=== PATIENT | male | born 1955 | race Caucasian/White ===

== ENCOUNTER 2019-06-15 06:50 | Inpatient (IN) | payer MEDICARE ==
[~2019-06-15] VITALS: Ht 172.7 cm; Wt 83.9 kg
[2019-06-15] MEDS ORDERED: Norco 5-325 Ta1 EACH PO (07:23)
[2019-06-15 09:53] LABS: BASOPHILS ABSOLUTE AUTO 0.04 K/mm3 (0.00-0.23); BASOPHILS PERCENT AUTO 0 % (0-2); EOSINOPHILS ABSOLUTE AUTO 0.03 K/mm3 (0.00-0.68); EOSINOPHILS PERCENT AUTO 0 % (0-6); Hematocrit 38.6 % (37.0-53.0); Hemoglobin 13.1 g/dL (13.5-17.5); IMMATURE GRAN ABSOLUTE AUTO 0.03 K/mm3 (0.00-0.10); IMMATURE GRAN PERCENT AUTO 0 % (0-1); LYMPHOCYTES ABSOLUTE AUTO 1.93 K/mm3 (0.84-5.20); LYMPHOCYTES PERCENT AUTO 19 % (21-46); MONOCYTES ABSOLUTE AUTO 0.94 K/mm3 (0.16-1.47); MONOCYTES PERCENT AUTO 9 % (4-13); Mean Corpuscular HGB 32.8 pg (26.0-34.0); Mean Corpuscular HGB Conc 33.9 g/dL (31.5-36.5); Mean Corpuscular Volume 97 fL (80-100); NEUTROPHILS ABSOLUTE AUTO 7.03 K/mm3 (1.96-9.15); NEUTROPHILS PERCENT AUTO 70 % (41-73); Platelet Count 284 K/mm3 (150-400); RDW Coefficient Variation 12.6 % (11.7-14.2)
[2019-06-15 10:15] LABS: Alanine Aminotransfer (ALT/SGP 34 U/L (12-78); Albumin, Blood 3.4 g/dL (3.4-5.0); Albumin/Globulin Ratio 0.9 (0.8-1.8); Alk Phos 75 U/L (50-136); Anion Gap 9 mmol/L (6-16); Aspartate Aminotrans (AST/SGOT 30 U/L (12-37); Bilirubin, Total 0.5 mg/dL (0.1-1.0); Blood Urea Nitrogen 6 mg/dL (8-24); Bun/Creatinine Ratio 20.6 (12.0-20.0); CO2, Blood 23 mmol/L (21-32); Calcium, Blood 8.3 mg/dL (8.5-10.1); Chloride, Blood 100 mmol/L (98-108); Creatinine, Blood 0.29 mg/dL (0.60-1.20); Globulin, Blood 3.6 g/dL (2.2-4.0); Glomerular Filtration Rate >60 (60-); Glucose, Blood 109 mg/dL (70-99); Potassium, Blood 4.4 mmol/L (3.5-5.5); Sodium, Blood 132 mmol/L (136-145); Troponin I <0.015 ng/mL (0.000-0.040)
[2019-06-15 10:20] LABS: Creatine Kinase MB 6.3 ng/mL (0.0-3.6); Creatine Kinase MB Index 1.5 (0.0-4.0)
--- NOTE | 2019-06-15 12:35 | NUR ---
DR SIBLEY AND JOLENE HERE TO SEE PT, S/O PRESENT, DISCUSSED PT'S STATUS/HX.
[2019-06-15 13:22] LABS: International Normalized Ratio 0.98; Prothrombin Time Results 10.5 Sec (9.7-11.5)
--- NOTE | 2019-06-15 13:46 | NUR ---
Pt gave me permission to help with his care 06/15/2019 in the emergency department.
--- NOTE | 2019-06-15 17:52 | NUR ---
DISCUSSED PAIN CONTROLL WITH DR SIBLEY, REPORTS WILL PLACE ORDERS.
--- NOTE | 2019-06-15 18:31 | NUR ---
Patient gave this RN student permission to provide care on 06/16/2019
--- NOTE | 2019-06-16 05:04 | NUR ---
SHIFT SUMMARY: SUSANNAH HAS RESTED INTERMITTENTLY DURING THE NIGHT. HE REPORTS TOLERABLE PAIN CONTROL WITH PERCOCET 5-325 MG, TWO TABLETS, AND DILAUDID 1 MG. HE WAS MADE NPO AT MIDNIGHT. THE TOES ON HIS RIGHT FOOT ARE COOL TO THE TOUCH, CAPILLARY REFILL < 3 SECONDS, STRONG PEDAL PULSE. SPLINT IN PLACE. HE IS ABLE TO MAKE HIS NEEDS KNOWN. HE HAS NOT DEMONSTRATED ANY CHANGE IN LOC, SWEATING, TREMORS, OR AGITATION THIS SHIFT. HE IS LYING IN BED WITH HIS CALL LIGHT IN REACH. HE DOES USE HIS CALL LIGHT APPROPRIATELY.
[2019-06-16 06:43] LABS: Anion Gap 5 mmol/L (6-16); Blood Urea Nitrogen 9 mg/dL (8-24); Bun/Creatinine Ratio 21.1 (12.0-20.0); CO2, Blood 28 mmol/L (21-32); Calcium, Blood 8.5 mg/dL (8.5-10.1); Chloride, Blood 100 mmol/L (98-108); Creatinine, Blood 0.43 mg/dL (0.60-1.20); Glomerular Filtration Rate >60 (60-); Glucose, Blood 134 mg/dL (70-99); Potassium, Blood 4.1 mmol/L (3.5-5.5); Sodium, Blood 133 mmol/L (136-145)
--- NOTE | 2019-06-16 10:44 | NUR ---
PAS PLACED TO E. FAMILY PRESENT.
--- NOTE | 2019-06-16 12:52 | NUR ---
PT OUT OF ROOM FOR PROCEDURE. PT VOIDED RECENTLY. PT BEEN NPO. DISCUSSED PAIN MEDS GIVEN.
--- NOTE | 2019-06-16 12:59 | NUR ---
History, Chart, Medications and Allergies reviewed before start of procedure. Patient confirms NPO status and agrees with scheduled surgery.
--- NOTE | 2019-06-16 13:00 | NUR ---
MARZENA WRAP TO RLE UPPER LEG. UNABLE TO DO CHLORHEXIDINE PREP AND CLIP PREP.
--- NOTE | 2019-06-16 14:16 | NUR ---
MARZENA WRAP REMOVED PER DR SIBLEY, WHILE DR SIBLEY STOOD AT BEDSIDE. Surgical site prepped with 2% Chlorhexidine cloth wipe. No hair noted to surgery site.
--- NOTE | 2019-06-16 16:18 | NUR ---
SHIFT SUMMARY PT BEEN NPO. PT BEEN ASSISTED WITH ADL'S PRN. PT SHOWN NO S/SX OF WITHDRAWAL. PT BEEN REPOSTIONED AT TIMES, OTHER TIMES REFUSED TO BE REPOSITIONED. PT CONT TO BE OUT OF ROOM FOR PROCEDURE. FAMILY IN/OUT OF ROOM.
--- NOTE | 2019-06-16 18:43 | NUR ---
PT BACK FROM HAVING PROCEDURE. PT LS CLEAR AFTER COUGHING. PT ON 8L O2 ON OXYIMIZER. PT REPORTS PAIN TO R HIP AREA. PT PULSE TO R FOOT WNL. PT CAP REFILL WNL. PT REQ PAIN MED. PT DENIES CP/SOB, N/V. PT WIGGLES TOES. PT HAS MARZENA WRAP TO R LEG FROM FOOT TO THIGH. PT SPEECH CLEAR. PT HAS NO TREMORS, HERNANDEZ. PT HR LOW 100'S.
--- NOTE | 2019-06-16 18:58 | NUR ---
PT OXYGEN DECREASED TO 6L O2 ON OXYMIZER. PT MED FOR PAIN. FAMILY WAS PRESENT WHEN PT TO ROOM.
--- NOTE | 2019-06-16 19:15 | NUR ---
BEDSIDE REPORT BEEN GIVEN, PT REPOSITIONED. ALARM IN PLACE.
[2019-06-17 04:51] LABS: BASOPHILS ABSOLUTE AUTO 0.03 K/mm3 (0.00-0.23); BASOPHILS PERCENT AUTO 0 % (0-2); EOSINOPHILS ABSOLUTE AUTO 0.02 K/mm3 (0.00-0.68); EOSINOPHILS PERCENT AUTO 0 % (0-6); Hematocrit 30.1 % (37.0-53.0); Hemoglobin 9.7 g/dL (13.5-17.5); IMMATURE GRAN ABSOLUTE AUTO 0.05 K/mm3 (0.00-0.10); IMMATURE GRAN PERCENT AUTO 1 % (0-1); LYMPHOCYTES ABSOLUTE AUTO 1.04 K/mm3 (0.84-5.20); LYMPHOCYTES PERCENT AUTO 11 % (21-46); MONOCYTES ABSOLUTE AUTO 1.23 K/mm3 (0.16-1.47); MONOCYTES PERCENT AUTO 13 % (4-13); Mean Corpuscular HGB 32.7 pg (26.0-34.0); Mean Corpuscular HGB Conc 32.2 g/dL (31.5-36.5); NEUTROPHILS ABSOLUTE AUTO 7.14 K/mm3 (1.96-9.15); NEUTROPHILS PERCENT AUTO 75 % (41-73); Platelet Count 184 K/mm3 (150-400); RDW Coefficient Variation 12.9 % (11.7-14.2); RDW Standard Deviation 48.5 fL (35.1-46.3); Red Blood Cell Count 2.97 M/mm3 (4.30-5.90); White Blood Cell Count 9.51 K/mm3 (4.00-11.30)
[2019-06-17 04:55] LABS: Mean Corpuscular Volume 101 fL (80-100)
--- NOTE | 2019-06-17 05:14 | NUR ---
SHIFT SUMMARY: PT POD #1 FOR ORIF TO RLE. PT A&O X4. VSS. MARZENA WRAP CDI. CAP REFILL WNL WITH STRONG PULSE. PT WEANED FROM 8LO2 VIA OXYMIZER TO ROOM AIR. MISHA PO. DENIES N/V. PAIN MANAGED WITH PERCOCET PER EMAR. GIVEN 1MG DILAUDID ONCE. CIWA'S THROUGHOUT SHIFT OF 0.
--- NOTE | 2019-06-17 09:50 | NUR ---
PERMISSION PATIENT GAVE PERMISSION OF CARE ON 06/17/2019
--- NOTE | 2019-06-17 09:51 | NUR ---
SHIFT ASSESSMENT AGREE WITH ASSESSMENT CHARGED BY WILFRIDO DIRECT CUSTOMER SERVICE REPRESENTATIVE. ASSESSMENT COMPLETED WITH STUDENT NURSE. WILL CONTINUE TO MONITOR.
--- NOTE | 2019-06-17 11:42 | NUR ---
BLEEDING PT HAD SOME BLEEDING FROM THE THIGH AREA. DRESSING WAS REINFORCED WITH ABD PAD AND MARZENA WRAP. WILL CONTINUE TO MONITOR FOR DRAINAGE.
--- NOTE | 2019-06-17 12:06 | NUR ---
BLEEDING PT STARED BLEEDING THROUGH MARZENA WRAP AT THE KNEE. DRESSING REINFORCED WITH ABD PAD AND MARZENA WRAP. DR. SIBLEY NOTIFIED. WILL GIVE TXA PER ORDER AND AWAIT H&H RESULT.
[2019-06-17 12:26] LABS: Hematocrit 29.2 % (37.0-53.0); Hemoglobin 9.7 g/dL (13.5-17.5)
--- NOTE | 2019-06-17 14:17 | NUR ---
SHIFT SUMMARY PAIN HAS BEEN MANAGED WITH PO PAIN MEDICATION. PT HAS BEEN A 2 PERSON MODERATE ASSIST FOR TRANSFERS. FAMILY HAS BEEN AT THE BEDSIDE FOR SUPPORT. BLEEDING HAS SUBSIDED FROM R HIP AND KNEE, DRESSING WAS CHANGED BY DR. SIBLEY. REPORT GIVEN TO NOE ARGUELLO.
--- NOTE | 2019-06-17 17:59 | NUR ---
summary patient sitting in chair eating dinner, ciwa zero at this time. pt reports current pain level 7/10- medicated for pain..right leg dressing dry and intact, no visible drainage
--- NOTE | 2019-06-18 04:14 | NUR ---
SHIFT SUMMARY: PT A&O X4. VSS. MARZENA WRAP CDI WITHOUT VISIBLE DRAINAGE. PAIN BEING MANAGED WITH 2 PERCOCET PER EMAR. CIWA SCORE 0 THROUGHOUT NIGHT. PT MODERATE TWO ASSIST FOR ALL TRANSFERS. VOIDING IN URINAL AT BEDSIDE. RESTING MOST OF SHIFT. USING INCENTIVE SPIROMETER. SNF RECOMMENDED AFTER DISCHARGE.
[2019-06-18 05:47] LABS: Hematocrit 26.2 % (37.0-53.0); Hemoglobin 8.9 g/dL (13.5-17.5)
--- NOTE | 2019-06-18 08:16 | NUR ---
06/18/19 0816 Keeley Cyr VERIFICATIONS: EDIT CHART.
--- NOTE | 2019-06-18 14:52 | NUR ---
BOWEL CARE STARTED FOR PT. WILL CONTINUE TO MONITOR.
--- NOTE | 2019-06-18 16:22 | NUR ---
SHIFT SUMMARY PAIN HAS BEEN MANAGED WITH PO PAIN MEDICATION. BOWEL PROTOCOL STARTED. PT IS A 2 PERSON ASSIST FOR TRANSFERS. FAMILY HAS BEEN PRESENT AT BESIDE T/O THE DAY. VSS. PLAN FOR SNF DISCHARGE TOMORROW. WILL MONITOR UNTIL REPORT TO ONCOMING RN.
--- NOTE | 2019-06-19 02:54 | NUR ---
ASSUMED CARE. PT SLEEPING IN RECLINER. CALL LIGHT IN REACH.
--- NOTE | 2019-06-19 05:16 | NUR ---
POD 3 S/P RIGHT ORIF DISTAL FEMUR. PT CONT TO REST WELL IN CHAIR WITH LEG ELEVATED. PLAN FOR SNF PLACEMENT TODAY. PT HAS BEEN VOIDING WELL, SL. PAIN MANAGED WITH ORAL NARCOTICS. DRESSING INTACT WITH GOOD CIRC CHECKS. CONT PT/OT WITH NWB TO RIGHT LEG. CALL LIGHT IN REACH.
== END 2019-06-19 13:50 | DRG 482 ==
LOC: ER 06:50 → SURS 12:15
PROVIDERS: Emergency Medicine; ADMIT Orthopaedic Surgery
PROC: 0QSB04Z Reposition Right Lower Femur with Internal Fixation Device, Open Approach (ICD-10-PCS; principal; 2019-06-16 14:30)
DX: S72.451A Displaced supracondylar fracture without intracondylar extension of lower end of right femur, initial encounter for closed fracture (principal)
CPT/HCPCS: 29505; 36415; 73552; 73560-RT; 80048; 80053; 82550; 82553; 84484; 85014; 85018; 85025; 85610; 85730; 86850; 86900; 86901; 93005; 93010; 96374-59; 96375-59; 97110; 97116; 97162; 97166; 97530; 97535; 99285-25; A9270-GY; C1713; C1769; J0330; J0690; J1170; J2250; J2405; J3010; J7030; J7120

== ENCOUNTER 2019-07-08 12:23 | Emergency (ER) | payer MEDICARE ==
[~2019-07-08] VITALS: Ht 172.7 cm; Wt 81.7 kg
[~2019-07-08 12:23] MED LIST: Norco 5-325 Ta1 EACH PO
[2019-07-08] MEDS ORDERED: Hydrocodone-Ap1 EA20 PO (14:36)
[2019-07-08] MEDS ORDERED: ELIQUIS5 MG PO (15:07)
== END 2019-07-08 15:47 | disposition home or self-care (01) ==
LOC: ER 12:23
DX: I82.401 Acute embolism and thrombosis of unspecified deep veins of right lower extremity (principal)
CPT/HCPCS: 99283

== ENCOUNTER 2020-10-12 18:59 | Emergency (ER) | payer MEDICARE ==
[~2020-10-12] VITALS: Ht 172.7 cm; Wt 86.2 kg
[~2020-10-12 18:59] MED LIST changes: +ELIQUIS5 MG PO; +Hydrocodone-Ap1 EA20 PO
== END 2020-10-12 21:53 | disposition home or self-care (01) ==
LOC: ER 18:59
DX: S01.81XA Laceration without foreign body of other part of head, initial encounter (principal); W01.10XA Fall on same level from slipping, tripping and stumbling with subsequent striking against unspecified object, initial encounter
CPT/HCPCS: 12011; 70450; 72125; 90471; 90714; 99283-25

== ENCOUNTER → 2020-11-09 | Outpatient (CLI) | payer MEDICARE ==
[~2020-11-09] MED LIST changes: +AMLO5 PO; +HYDACE10B PO; +HYDR1TAB94 PO; +LOSARTAN-HCTZ1 EACH PO
== END ==
LOC: LAB 14:42 → LAB SHORT 14:42
DX: D48.5 Neoplasm of uncertain behavior of skin (principal)
CPT/HCPCS: 88305

== ENCOUNTER 2020-12-09 06:23 | Emergency (ER) | payer MEDICARE ==
[~2020-12-09] VITALS: Ht 175.3 cm; Wt 90.7 kg
[~2020-12-09 06:23] MED LIST changes: -AMLO5 PO; -HYDACE10B PO; -HYDR1TAB94 PO; -LOSARTAN-HCTZ1 EACH PO
[2020-12-09] MEDS ORDERED: LOSARTAN-HCTZ1 EACH PO (06:32)
[2020-12-09] MEDS ORDERED: AMLO5 PO (06:32)
[2020-12-09] MEDS ORDERED: HYDACE10B PO (06:35)
[2020-12-09] MEDS ORDERED: HYDR1TAB94 PO (08:25)
== END 2020-12-09 08:40 | disposition home or self-care (01) ==
LOC: ER 06:23
DX: M25.561 Pain in right knee (principal); Z87.891 Personal history of nicotine dependence
CPT/HCPCS: 96372; 99283; A9270; J1885

== ENCOUNTER → 2020-12-21 | Outpatient (CLI) | payer MEDICARE ==
[~2020-12-21] MED LIST changes: +AMLO5 PO; +HYDACE10B PO; +HYDR1TAB94 PO; +LOSARTAN-HCTZ1 EACH PO
[2020-12-21 20:12] LABS: Adenovirus F 40/41 Not Detected (NOT DETECT); Astrovirus Not Detected (NOT DETECT); Campylobacter Sp Not Detected (NOT DETECT); Cryptosporidium Not Detected (NOT DETECT); Cyclospora Cayetanensis Not Detected (NOT DETECT); E. Coli O157 Not Detected (NOT DETECT); Entamoeba Histolytica Not Detected (NOT DETECT); Enteroaggregative E. coli-EAEC Not Detected (NOT DETECT); Enteropathogenic E. coli-EPEC Not Detected (NOT DETECT); Enterotoxigenic E. coli-ETEC Not Detected (NOT DETECT); Giardia Lamblia Not Detected (NOT DETECT); Norovirus GI/GII Detected (NOT DETECT); Plesiomonas Shigelloides Not Detected (NOT DETECT); Rotavirus A Not Detected (NOT DETECT); Salmonella Sp Not Detected (NOT DETECT); Sapovirus Not Detected (NOT DETECT); Shiga Toxin-prod E. coli-STEC Not Detected (NOT DETECT); Shigella/Enteroin E. coli-EIEC Not Detected (NOT DETECT); Vibrio Cholerae Not Detected (NOT DETECT); Vibrio Sp Not Detected (NOT DETECT); Yersinia Enterocolitica Not Detected (NOT DETECT)
== END | disposition home or self-care (01) ==
LOC: LAB SHORT 15:59 → LAB 15:59
PROVIDERS: Surgery
DX: R19.7 Diarrhea, unspecified (principal)
CPT/HCPCS: 0097U

== ENCOUNTER → 2021-04-05 | Outpatient (CLI) | payer MEDICARE ==
[2021-04-05 15:30] LABS: BASOPHILS ABSOLUTE AUTO 0.04 K/mm3 (0.00-0.23); BASOPHILS PERCENT AUTO 1 % (0-2); EOSINOPHILS ABSOLUTE AUTO 0.02 K/mm3 (0.00-0.68); EOSINOPHILS PERCENT AUTO 0 % (0-6); Hematocrit 44.4 % (37.0-53.0); Hemoglobin 15.2 g/dL (13.5-17.5); IMMATURE GRAN ABSOLUTE AUTO 0.04 K/mm3 (0.00-0.10); IMMATURE GRAN PERCENT AUTO 1 % (0-1); LYMPHOCYTES ABSOLUTE AUTO 1.46 K/mm3 (0.84-5.20); LYMPHOCYTES PERCENT AUTO 17 % (21-46); MONOCYTES PERCENT AUTO 9 % (4-13); Mean Corpuscular HGB 33.6 pg (26.0-34.0); Mean Corpuscular HGB Conc 34.2 g/dL (31.5-36.5); Mean Corpuscular Volume 98 fL (80-100); Mean Platelet Volume 9.7 fL (9.1-12.4); NEUTROPHILS PERCENT AUTO 72 % (41-73); Platelet Count 326 K/mm3 (150-400); RDW Coefficient Variation 13.3 % (11.7-14.2); RDW Standard Deviation 48.3 fL (35.1-46.3); Red Blood Cell Count 4.52 M/mm3 (4.30-5.90); White Blood Cell Count 8.56 K/mm3 (4.00-11.30)
[2021-04-05 17:06] LABS: Alanine Aminotransfer (ALT/SGP 49 U/L (12-78); Albumin, Blood 3.6 g/dL (3.4-5.0); Albumin/Globulin Ratio 0.7 (0.8-1.8); Alk Phos 157 U/L (50-136); Anion Gap 11 mmol/L (6-16); Aspartate Aminotrans (AST/SGOT 51 U/L (12-37); Bilirubin, Total 0.5 mg/dL (0.1-1.0); Blood Urea Nitrogen 7 mg/dL (8-24); Bun/Creatinine Ratio 19.2 (12.0-20.0); CO2, Blood 26 mmol/L (21-32); Calcium, Blood 9.5 mg/dL (8.5-10.1); Chloride, Blood 91 mmol/L (98-108); Creatinine, Blood 0.36 mg/dL (0.60-1.20); Globulin, Blood 5.1 g/dL (2.2-4.0); Glomerular Filtration Rate >60 (60-); Glucose, Blood 113 mg/dL (70-99); Potassium, Blood 3.8 mmol/L (3.5-5.5); Sodium, Blood 128 mmol/L (136-145); Total Protein, Blood 8.7 g/dL (6.4-8.2)
== END | disposition home or self-care (01) ==
LOC: LAB SHORT 11:50
PROVIDERS: Nurse Practitioner Family
DX: I10 Essential (primary) hypertension (principal)
CPT/HCPCS: 80053; 85025

== ENCOUNTER 2021-04-18 11:02 | Day surgery (SDC) | payer MEDICARE ==
[~2021-04-18] VITALS: Ht 172.7 cm; Wt 87.4 kg
--- NOTE | 2021-04-18 11:32 | NUR ---
Ambulatory in Day SurgeryPatient states colon prep results clear. History, Chart, Medications and Allergies reviewed before start of procedure.Lungs clear T/O to Auscultation. Patient confirms NPO status and agrees with scheduled surgery. Pre-Op teaching done. Pt verbalizes understanding. Patient States Post-Procedure ride home has been arranged.
--- NOTE | 2021-04-18 12:37 | NUR ---
04/18/21 1237 Krista Palmer History, Chart, Medications and Allergies reviewed before start of procedure. Patient confirms NPO status and agrees with scheduled surgery. 3-LEAD EKG REVIEWED WITH PHYSICIAN PRIOR TO START OF PROCEDURE. MONITOR INTACT WITH CONTINUOUS PULSE OXIMETRY AND INTERMITTENT BP. PATIENT DETERMINED TO BE ASA APPROPRIATE FOR PROPOFOL SEDATION PRIOR TO START OF PROCEDURE BY DR. BANERJEE.
--- NOTE | 2021-04-18 15:08 | NUR ---
Discharge instructions reviewed with patient. Patient verbalizes understanding. Copy given to patient to take home. Discharged via wheelchair to private car for ride home. Patient States Post-Procedure ride home has been arranged.
== END 2021-04-19 23:13 | disposition home or self-care (01) ==
LOC: ORSCMMR 11:02 → ORD 12:30 → ORSCMMR 12:30
PROVIDERS: Student in an Organized Health Care Education/Training Program
PROC: 3E0H8KZ Introduction of Other Diagnostic Substance into Lower GI, Via Natural or Artificial Opening Endoscopic (ICD-10-PCS; principal; 2021-04-18 12:30)
PROC: 0DBL8ZX Excision of Transverse Colon, Via Natural or Artificial Opening Endoscopic, Diagnostic (ICD-10-PCS; principal; 2021-04-18 12:30)
PROC: 0DBN8ZX Excision of Sigmoid Colon, Via Natural or Artificial Opening Endoscopic, Diagnostic (ICD-10-PCS; principal; 2021-04-18 12:30)
PROC: 0DBP8ZX Excision of Rectum, Via Natural or Artificial Opening Endoscopic, Diagnostic (ICD-10-PCS; principal; 2021-04-18 12:30)
PROC: 0DBM8ZX Excision of Descending Colon, Via Natural or Artificial Opening Endoscopic, Diagnostic (ICD-10-PCS; principal; 2021-04-18 12:30)
PROC: 0DBK8ZX Excision of Ascending Colon, Via Natural or Artificial Opening Endoscopic, Diagnostic (ICD-10-PCS; principal; 2021-04-18 12:30)
DX: R19.7 Diarrhea, unspecified (principal); D12.2 Benign neoplasm of ascending colon; D12.3 Benign neoplasm of transverse colon; D12.4 Benign neoplasm of descending colon; D12.5 Benign neoplasm of sigmoid colon; K62.1 Rectal polyp; E11.9 Type 2 diabetes mellitus without complications; I10 Essential (primary) hypertension; Z79.899 Other long term (current) drug therapy
CPT/HCPCS: 82947; 88305; J2704; J7120

== ENCOUNTER 2021-08-15 05:46 | Inpatient (IN) | payer MEDICARE ==
[~2021-08-15] VITALS: Ht 175.3 cm; Wt 93.4 kg
--- NOTE | 2021-08-15 08:23 | NUR ---
08/15/21 0823 Gunnar Edge PEARCE INSERTED IN OR BY ORD.LMA USING STERILE TECHNIQUE BEFORE DRAPING. BALLOON INFLATED WITH 10CC FLUID. APPROXIMATELY 150CC URINE DRAINED AFTER PLACING PEARCE AND SET ASIDE IN CONTAINER FOR IO'S.
--- NOTE | 2021-08-15 13:23 | NUR ---
DR NOGUEIRA IN TO SEE PATIENT. STATES TO KEEP OXYGEN SATS IN HIGH 90'S FOR FIRST COUPLE OF HOURS POST OPERATIVELY. NC APPLIED AT 2L WITH SATS INCREASE FROM 93-99. PT HAS HX OF COPD - PLAN TO MONITOR CAREFULLY.
--- NOTE | 2021-08-15 19:21 | NUR ---
SHIFT SUMMARY PT HAS RESTED SINCE ARRIVAL TO UNIT. C/O L EYE FEELING IF SOMETHING IS IN IT. EYE DROPS GIVEN FOR COMFORT. ABD DSG's w/ NO NEW DRNG. PAIN WELL CONTROLLED w/ MINIMAL USE OF AUTO WHEEL ALIGNMENT SPECIALIST. DENIES N/V.
[2021-08-16 04:51] LABS: BASOPHILS ABSOLUTE AUTO 0.02 K/mm3 (0.00-0.23); BASOPHILS PERCENT AUTO 0 % (0-2); EOSINOPHILS ABSOLUTE AUTO 0.01 K/mm3 (0.00-0.68); EOSINOPHILS PERCENT AUTO 0 % (0-6); Hematocrit 37.5 % (37.0-53.0); Hemoglobin 12.5 g/dL (13.5-17.5); IMMATURE GRAN ABSOLUTE AUTO 0.03 K/mm3 (0.00-0.10); IMMATURE GRAN PERCENT AUTO 0 % (0-1); LYMPHOCYTES ABSOLUTE AUTO 1.46 K/mm3 (0.84-5.20); LYMPHOCYTES PERCENT AUTO 16 % (21-46); MONOCYTES ABSOLUTE AUTO 1.01 K/mm3 (0.16-1.47); MONOCYTES PERCENT AUTO 11 % (4-13); Mean Corpuscular HGB 32.7 pg (26.0-34.0); Mean Corpuscular HGB Conc 33.3 g/dL (31.5-36.5); Mean Corpuscular Volume 98 fL (80-100); Mean Platelet Volume 8.9 fL (9.1-12.4); NEUTROPHILS PERCENT AUTO 72 % (41-73); Platelet Count 289 K/mm3 (150-400); RDW Coefficient Variation 13.5 % (11.7-14.2); Red Blood Cell Count 3.82 M/mm3 (4.30-5.90); White Blood Cell Count 9.13 K/mm3 (4.00-11.30)
--- NOTE | 2021-08-16 05:03 | NUR ---
SHIFT SUMMARY A/O X4. VSS. BEDREST THIS SHIFT. ABDOMINAL LAP SITES X4 C/D/I. MIDLINE TAMELA INTACT WITH SCANT AMOUNT OF RED DRIED DRAINAGE. PAIN MANAGED WELL WITH MAINTENANCE OF WAY CLERK PUMP. PEARCE IN PLACE DRAINING TO GRAVITY. PATIENT COOPERATIVE AND PLEASANT WITH CARE. TOLERATED ICE CHIPS. WILL CONTINUE TO MONITOR AND REPORT TO ONCOMING RN.
[2021-08-16 05:24] LABS: Anion Gap 6 mmol/L (6-16); Blood Urea Nitrogen 5 mg/dL (8-24); Bun/Creatinine Ratio 14.7 (12.0-20.0); CO2, Blood 28 mmol/L (21-32); Calcium, Blood 8.5 mg/dL (8.5-10.1); Chloride, Blood 102 mmol/L (98-108); Creatinine, Blood 0.34 mg/dL (0.60-1.20); Glomerular Filtration Rate >60 (60-); Glucose, Blood 131 mg/dL (70-99); Potassium, Blood 3.8 mmol/L (3.5-5.5); Sodium, Blood 136 mmol/L (136-145)
--- NOTE | 2021-08-16 18:35 | NUR ---
SHIFT SUMMARY PT HAS DONE WELL TODAY. TOLERATING ICE CHIPS & SIPS; DENIES N/V. ABD SOFT. SAT UP IN CHAIR T/O DAY, WORKED w/ THERAPY & AMBULATED IN ROOM, BUT DENIES PASSING GAS YET. PORTIA WAS DC'd & UNFORTUNATLY HAD TO BE STRAIGHT CATHED. PLEASANT & COOPERATIVE.
--- NOTE | 2021-08-17 05:24 | NUR ---
ADVERTISING SPECIALIST SUMMARY PT AAOX4 AND PLEASANT. ABD LAP SITES X4 C/D/I WITH MIDLINE TAMELA DRESSING WITH MINIMAL DRAINAGE NOTED. ABD FIRM. PT STATES PAIN IS TOLERABLE WITH FENTANYL COMMERCIAL LINES ACCOUNT ASSISTANT. PT DID NOT VOID THIS SHIFT, STRAIGHT CATHED THIS AM FOR 550 ML AFTER BLADDER SCAN OF 413. VSS, WILL CONTINUE TO MONITOR.
--- NOTE | 2021-08-17 18:39 | NUR ---
PT REPORTS PAIN HAS BEEN TOLERABLE DURING SHIFT. DRESSINGS REMAIN UNCHANGED. PT STILL NOT PASSING FLATUS, BOWEL SOUNDS HYPOACTIVE. PT HAS BEEN AMBULATING WELL DURING SHIFT. HE IS EAGER TO INCREASE MOBILIZATION. PT CONTINUES TO STRUGGLE TO VOID. PLAN IS TO PLACE PEARCE PER DR. NOGUEIRA AND LEAVE IN PLACE.
[2021-08-17 21:10] LABS: Source, Urine Foley catheter
[2021-08-17 21:25] LABS: Appearance, Urine Clear (Clear); Bilirubin, Urine Neg (Neg); Blood, Urine 4+ (Neg); Color, Urine Yellow (P-Yellow); Glucose Qualitative, Urine Neg (Neg); Ketones, Urine 4+ (Neg); Leukocyte Esterase, Urine 1+ (Neg); Nitrite, Urine Neg (Neg); Protein, Urine 2+ (Neg); Specific Gravity, Urine 1.015 (1.003-1.022); Urobilinogen, Urine NORM (Normal)
[2021-08-17 21:31] LABS: Hyaline Casts 0-2 /lpf (0-2); Squamous Epithelial Cells Rare /hpf (Few)
[2021-08-17 21:32] LABS: Bacteria Few /hpf; Mucus Light (0-Heavy)
--- NOTE | 2021-08-18 01:43 | NUR ---
CATHETER CARE DONE WITH READYCLEANSE WIPES. PT. TOLERATED WELL.
[2021-08-18 03:52] LABS: BASOPHILS ABSOLUTE AUTO 0.02 K/mm3 (0.00-0.23); BASOPHILS PERCENT AUTO 0 % (0-2); EOSINOPHILS ABSOLUTE AUTO 0.02 K/mm3 (0.00-0.68); EOSINOPHILS PERCENT AUTO 0 % (0-6); Hematocrit 40.1 % (37.0-53.0); Hemoglobin 13.4 g/dL (13.5-17.5); IMMATURE GRAN ABSOLUTE AUTO 0.04 K/mm3 (0.00-0.10); IMMATURE GRAN PERCENT AUTO 0 % (0-1); LYMPHOCYTES ABSOLUTE AUTO 1.16 K/mm3 (0.84-5.20); LYMPHOCYTES PERCENT AUTO 11 % (21-46); MONOCYTES ABSOLUTE AUTO 0.92 K/mm3 (0.16-1.47); MONOCYTES PERCENT AUTO 8 % (4-13); Mean Corpuscular HGB 32.4 pg (26.0-34.0); Mean Corpuscular HGB Conc 33.4 g/dL (31.5-36.5); Mean Corpuscular Volume 97 fL (80-100); Mean Platelet Volume 8.7 fL (9.1-12.4); NEUTROPHILS ABSOLUTE AUTO 8.73 K/mm3 (1.96-9.15); NEUTROPHILS PERCENT AUTO 80 % (41-73); Platelet Count 305 K/mm3 (150-400); RDW Coefficient Variation 13.3 % (11.7-14.2); RDW Standard Deviation 47.7 fL (35.1-46.3); Red Blood Cell Count 4.14 M/mm3 (4.30-5.90); White Blood Cell Count 10.89 K/mm3 (4.00-11.30)
[2021-08-18 04:18] LABS: Anion Gap 9 mmol/L (6-16); Blood Urea Nitrogen 5 mg/dL (8-24); Bun/Creatinine Ratio 14.2 (12.0-20.0); CO2, Blood 24 mmol/L (21-32); Calcium, Blood 8.9 mg/dL (8.5-10.1); Chloride, Blood 100 mmol/L (98-108); Creatinine, Blood 0.35 mg/dL (0.60-1.20); Glomerular Filtration Rate >60 (60-); Glucose, Blood 143 mg/dL (70-99); Magnesium, Blood 1.8 mg/dL (1.6-2.4); Phosphorus, Blood 2.4 mg/dL (2.5-4.9); Potassium, Blood 3.6 mmol/L (3.5-5.5); Sodium, Blood 133 mmol/L (136-145)
--- NOTE | 2021-08-18 05:07 | NUR ---
BARREL FINISHER SUMMARY PT AAOX4 AND PLEASANT. STILL ON SIPS/CHIPS, HYPOACTIVE BOWEL TONES T/O. PT DENIES FLATUS. ABD BETTER CONTROLLED TONIGHT, PT HAS NOT USED FENTANYL CUSTOMER EXPERIENCE ANALYST OFTEN PREVIOUS DAYS. PT HAS BEEN UP IN RECLINER MOST OF THE SHIFT IT IS MORE COMFORTABLE FOR HIM. VSS, WILL CONTINUE TO MONITOR.
--- NOTE | 2021-08-18 17:56 | NUR ---
SHIFT SUMMARY POD3 LAP COLECTOMY CONVERTED TO OPEN COLECTOMY. MIDLINE TAMELA W/ SMALL AMT OF DARK BROWN DRAINAGE, X4 LAP SITES W/ GAUZE C/D/I. MOD ABDOMINAL DISTENTION, NO REPORTS OF FLATUS OR BM BUT FREQUENT BURPING. AMBULATING WELL W/ 4 WHEEL WALKER & GB, SBA. AMBULATED HALLS T/O SHIFT, TOLERATING WELL. PAIN MANAGED W/ FENT SENIOR SALES REPRESENTATIVE. PEARCE IN PALCE D/T RETENTION, DRAINING CLEAR YELLOW URINE. TOLERATING SIPS & CHIPS, OKAY PER DR. NOGUEIRA. WILL REPORT TO ONCOMING RN.
--- NOTE | 2021-08-19 07:54 | NUR ---
SHIFT SUMMARY PT SLEPT MOST OF THE NIGHT. PAIN IS WELL CONTROLLED WITH HEALTHCARE INSURANCE SALES AGENT FENTANYL. CPAP WHILE ASLEEP FOR SLEEP APNEA. PEARCE IN PLACE, DRAINING YELLOW URINE TO GRAVITY. DURING DAYS, PT IS ABLE TO WALK THE HALLWAYS. HE HAS NOT HAD A BM OR PASSED GAS, HE REPORTS BURPING A LOT. MODERATE DISTENTION TO HIS ABD. POD#3 S/P HEMICOLLECTOMY, 4 LAP INCISIONS C/D/I - NO DRAINAGE NOTED. MIDLINE ABD INCISION IS COVERED WITH TAMELA DRESSING, WITH SMALL AMOUNT OF YELLOW/BROWN DRAINAGE. PLEASANT PT.
--- NOTE | 2021-08-19 17:20 | NUR ---
SHIFT SUMMARY PT A&OX4, VSS/RA, CPAP/BIOX NAP/NOC, MISHA PO ICE CHIPS, PEARCE PATENT & DRAINING YELLOW URINE, STAT LOCK ON, OFF FLOOR. POD4 MARIA LUZ R HEMICOLECTOMY, MIDLINE MEDIPORE, 4 LAP SITES W/QUINCY NILSON, MOD ABD DISTENSION, DENIES FLATUS/BM. AMBULATING INDEPENDENTLY W/4WHEEL WALKER IN ROOM/HALLWAY T/O SHIFT; UP TO CHAIR T/O SHIFT. PAIN: DENIED PAIN MOST OF SHIFT/DISCONNECTED FROM ACETYLENE GAS COMPRESSOR, ONLY REQUESTED TO BE RECONNECTED ONCE FOR PAIN MED. WILL REPORT TO NEXT RN.
[2021-08-20 05:35] LABS: Anion Gap 7 mmol/L (6-16); Blood Urea Nitrogen 6 mg/dL (8-24); Bun/Creatinine Ratio 13.3 (12.0-20.0); CO2, Blood 26 mmol/L (21-32); Calcium, Blood 8.9 mg/dL (8.5-10.1); Chloride, Blood 97 mmol/L (98-108); Creatinine, Blood 0.45 mg/dL (0.60-1.20); Glomerular Filtration Rate >60 (60-); Glucose, Blood 133 mg/dL (70-99); Magnesium, Blood 1.8 mg/dL (1.6-2.4); Phosphorus, Blood 3.9 mg/dL (2.5-4.9); Potassium, Blood 3.8 mmol/L (3.5-5.5); Sodium, Blood 130 mmol/L (136-145)
--- NOTE | 2021-08-20 07:45 | NUR ---
SUMMARY PT WITH INCREASING LARGELY DISTENDED ABDOMEN. NO FLATUS. BTS RARE.C/O HEARTBURN.I CALLED AND NOTIFIED DR PEREZ.I CONTINUED IV FLUIDS PER ORDERS. I ? REGLAN ? IV NUTRITION AT THIS POINT? NO ORDERS RECEIVED. DR PEREZ VERB HE WILL BE IN TO CHECK PT.
--- NOTE | 2021-08-20 08:16 | NUR ---
A&OX4, C/O PAIN ON ABD, REPORT ABD IS MORE DISTENDED TODAY AND PT FEELS MORE UNCOMFORTABLE, DR. PEREZ NOTIFIED THIS AM BY GABBY,RN, PT STATES AMBULATING DOWN THE HALLS HELPS WITH THE PAIN, CONT. TO MONITOR FOR ANY CHANGES.
--- NOTE | 2021-08-20 15:05 | NUR ---
REPORTS ABD DISTENTION IS " A LITTLE BETTER" STILL DENIES PASSING FLATUS, USING ELECTRIC METER READER FOR PAIN CONTROL, CONT. TO MONITOR FOR ANY CHANGES.
--- NOTE | 2021-08-20 17:34 | NUR ---
SUMMARY ABD DISTENDED MOST OF THE DAY, INCREASED PAIN AND DISCOMFORT TODAY PER PT, USING COVERAGE SPECIALIST MORE, CONT. TO AMBULATE DOWN THE HALLS WITH WALKER, STATES WALKING HELPS WITH THE PAIN, DENIES ANY NAUSEA, CONT. TO BE DISTENDED THIS AFTERNOON, DR. PEREZ NOTIFIED, 14FR. NGT INSERTED, COPIOUS AMOUNT OF GREEN FLUID NOTED DRAINING, PT REPORTS ABD "FEELS BETTER" TOLERATED PROCEDURE WELL, NO OTHER CHANGES THIS SHIFT.
--- NOTE | 2021-08-20 21:00 | NUR ---
NGT REMOVED PER PT REQ. PT EDUCATED ON BENEFITS OF LEAVING NGT IN PLACE, PT REP HE IS UNABLE TO MISHA NGT ANY LONGER. TUBE D/C WNL. PT MISHA REMOVAL WELL.
[2021-08-21 07:38] LABS: BASOPHILS ABSOLUTE AUTO 0.02 K/mm3 (0.00-0.23); BASOPHILS PERCENT AUTO 0 % (0-2); EOSINOPHILS ABSOLUTE AUTO 0.08 K/mm3 (0.00-0.68); EOSINOPHILS PERCENT AUTO 2 % (0-6); Hematocrit 37.6 % (37.0-53.0); Hemoglobin 12.6 g/dL (13.5-17.5); IMMATURE GRAN ABSOLUTE AUTO 0.02 K/mm3 (0.00-0.10); IMMATURE GRAN PERCENT AUTO 0 % (0-1); LYMPHOCYTES ABSOLUTE AUTO 1.27 K/mm3 (0.84-5.20); LYMPHOCYTES PERCENT AUTO 24 % (21-46); MONOCYTES ABSOLUTE AUTO 0.78 K/mm3 (0.16-1.47); MONOCYTES PERCENT AUTO 15 % (4-13); Mean Corpuscular HGB 32.1 pg (26.0-34.0); Mean Corpuscular HGB Conc 33.5 g/dL (31.5-36.5); Mean Corpuscular Volume 96 fL (80-100); Mean Platelet Volume 8.8 fL (9.1-12.4); NEUTROPHILS ABSOLUTE AUTO 3.11 K/mm3 (1.96-9.15); NEUTROPHILS PERCENT AUTO 59 % (41-73); Platelet Count 348 K/mm3 (150-400); RDW Coefficient Variation 13.2 % (11.7-14.2); RDW Standard Deviation 46.9 fL (35.1-46.3); Red Blood Cell Count 3.92 M/mm3 (4.30-5.90); White Blood Cell Count 5.28 K/mm3 (4.00-11.30)
--- NOTE | 2021-08-21 07:38 | NUR ---
POD 1 S/P COLECTOMY. PT VSS T/O NIGHT. NGT REMOVED EARLY IN SHIFT. PT HAS DENIED N/V, BT SPARSE, ABD REMAINS DISTENDED. PT REP PAIN MISHA W/SYSTEMS TECHNOLOGIST. IVF CONT PER ORDERS. PEARCE PATANT DRNG DARK YELLOW URINE. PT UP IN CHAIR, AMB W/WALKER AND SBA
[2021-08-21 08:01] LABS: Anion Gap 6 mmol/L (6-16); Blood Urea Nitrogen 6 mg/dL (8-24); Bun/Creatinine Ratio 13.5 (12.0-20.0); CO2, Blood 28 mmol/L (21-32); Calcium, Blood 8.6 mg/dL (8.5-10.1); Chloride, Blood 98 mmol/L (98-108); Creatinine, Blood 0.44 mg/dL (0.60-1.20); Glomerular Filtration Rate >60 (60-); Glucose, Blood 135 mg/dL (70-99); Potassium, Blood 3.8 mmol/L (3.5-5.5); Sodium, Blood 132 mmol/L (136-145)
--- NOTE | 2021-08-21 08:52 | NUR ---
PT HAD MED FORMED BM. DR NOGUEIRA NOTIFED, WILL GIVE SMALL AMTS CLEAR LIQUIDS AND SALINE LOCK.
[2021-08-22 04:21] LABS: BASOPHILS ABSOLUTE AUTO 0.02 K/mm3 (0.00-0.23); BASOPHILS PERCENT AUTO 0 % (0-2); EOSINOPHILS ABSOLUTE AUTO 0.09 K/mm3 (0.00-0.68); EOSINOPHILS PERCENT AUTO 2 % (0-6); Hematocrit 35.6 % (37.0-53.0); Hemoglobin 11.7 g/dL (13.5-17.5); IMMATURE GRAN ABSOLUTE AUTO 0.02 K/mm3 (0.00-0.10); IMMATURE GRAN PERCENT AUTO 0 % (0-1); LYMPHOCYTES ABSOLUTE AUTO 0.97 K/mm3 (0.84-5.20); LYMPHOCYTES PERCENT AUTO 21 % (21-46); MONOCYTES ABSOLUTE AUTO 0.95 K/mm3 (0.16-1.47); MONOCYTES PERCENT AUTO 21 % (4-13); Mean Corpuscular HGB 32.3 pg (26.0-34.0); Mean Corpuscular HGB Conc 32.9 g/dL (31.5-36.5); Mean Corpuscular Volume 98 fL (80-100); NEUTROPHILS ABSOLUTE AUTO 2.58 K/mm3 (1.96-9.15); NEUTROPHILS PERCENT AUTO 56 % (41-73); Platelet Count 306 K/mm3 (150-400); RDW Coefficient Variation 13.2 % (11.7-14.2); RDW Standard Deviation 47.8 fL (35.1-46.3); Red Blood Cell Count 3.62 M/mm3 (4.30-5.90); White Blood Cell Count 4.63 K/mm3 (4.00-11.30)
[2021-08-22 04:40] LABS: Anion Gap 6 mmol/L (6-16); Blood Urea Nitrogen 5 mg/dL (8-24); Bun/Creatinine Ratio 12.1 (12.0-20.0); CO2, Blood 25 mmol/L (21-32); Calcium, Blood 8.4 mg/dL (8.5-10.1); Chloride, Blood 102 mmol/L (98-108); Creatinine, Blood 0.41 mg/dL (0.60-1.20); Glomerular Filtration Rate >60 (60-); Glucose, Blood 121 mg/dL (70-99); Magnesium, Blood 1.7 mg/dL (1.6-2.4); Potassium, Blood 3.9 mmol/L (3.5-5.5); Sodium, Blood 133 mmol/L (136-145)
--- NOTE | 2021-08-22 06:36 | NUR ---
POD 7 S/P SUKHWINDER COLECTOMY. PT VSS S/T NIGHT. ABD IS SOMEWHAT LESS DISTENDED, SOFTER TO PALP THIS AM, BT ACTIVE. PT HAD BM X2 THIS SHIFT, REP +FLATUS. PT DENIED PAIN/N/V, ONLY USED 10MCG ON LEAD ATG DEVELOPER. PEARCE PATANT, URINE BECOMING VIDEO AND SOUND RECORDER IN COLOR THIS AM.
--- NOTE | 2021-08-22 09:14 | NUR ---
PORTIA DISCONTINUED AT APROX [address] NOGUEIRA VERBAL ORDER.
--- NOTE | 2021-08-22 16:07 | NUR ---
SHIFT SUMMARY PT ADVANCED TO FULL LIQUID DIET PER DR NOGUEIRA THIS AM, TOLERATED WITH NO N/V. PT HAS BEEN SALINE LOCKED AND FLUIDS DC'D, 1 UNMEASURED VOID PER PT-PT GIVEN URINAL AND EDUCATED ON NEED FOR MEASURED VOIDS. NO BM THIS SHIFT, ABD DISTENDED WITH HYPOACTIVE BT. PT AMBULATING MULTIPLE TIMES IN HALLWAY T/O SHIFT. DENIES ABD PAIN. DRESSING WITH SCANT AMT SS DRAINGE PRESENT AT THIS TIME, NEW MEDIPORE DRESSING APPLIED AT THIS TIME.
--- NOTE | 2021-08-22 17:40 | NUR ---
BLADDER SCAN DONE, TOTAL [address] NOGUEIRA STRAIGHT CATH ONLY IF ABOVE 400ML.
--- NOTE | 2021-08-23 06:34 | NUR ---
PT HAD BETTER NIGHT. LESS ABD DISTENTION THIS AM, ABD SOFTER TO PALP. PT REP +SMALL AMT OF FLATUS, REP +2 LARGE BM. PT DOES CONT TO HAVE SMALL AMT BILE EMESIS, ALTHOUGH DENIES FEELING NAUSEOUS. PT VOIDING URINE W/O DIFFICULTY. PO INTAKE MINIMAL, ONLY SIPS OF WATER. PT AMB INDEP IN ROOM, MISHA WELL.
--- NOTE | 2021-08-23 15:36 | NUR ---
SHIFT SUMMARY POD8 EXTENDED RIGHT COLECTOMY. PT REPORTS THAT HE IS FEELING A LOT BETTER TODAY COMPARED YESTERDAY. PT TOLERATING FULL LIQUID DIET, DENIES NAUSEA AND VOMITING. ABD IS LESS DISTENDED, DENIES FEELING OF ABD TIGHTNESS. MIDLINE INCISION WITH MEDIPORE DRESSING, CHANGED THIS MORNING BY DR. NOGUEIRA. AMBULATES INDEPENDENT WITH FWW IN THE HALLWAY MULTIPLE TIMES. FREQUENT SMALL LOOSE GREEN STOOLS. VOIDING ADEQUATELY WITHOUT ANY ISSUES. PT DENIES CHEST PAIN, DIZZINESS, N/T. PT ALSO REPORTS ABD HAS VERY MILD PAIN, DIDN'T REQUIRE ANY PAIN MEDS. PT ALSO REPORTS PASSING GAS. BT ACTIVE. IV FLUIDS INFUSING. CALL LIGHT WITHIN REACH. WILL PROVIDE REPORT TO ONCOMING NURSE.
--- NOTE | 2021-08-24 04:59 | NUR ---
TEXTILE PIN WORKER SUMMARY PT AAOX4 AND PLEASANT. INDEPENDENT IN ROOM AND HALLWAY WITH FWW, PT AMBULATES WELL. DENIES ABD PAIN AND HAS NOT REQUIRED PAIN MEDS TONIGHT. DENIES N/V. PT HAS TOLERATED CLEAR LIQUIDS TONIGHT, ENCOURAGED PO FLUIDS TOLERATED BY PT. PT HAS BEEN HAVING FREQUENT SMALL LIQUID STOOLS AND FLATUS. VSS, WILL CONTINUE TO MONITOR.
--- NOTE | 2021-08-24 19:50 | NUR ---
SHIFT SUMMARY PT HAS BEEN AMBULATING IN THE HALWAYS T/O THE DAY. HE IS PASSING FLATUS AND STOOL. PT OK TO ADVANCE DIET TOLERATED BUT WANTS TO REMAIN ON FULL LIQUID UNTIL BREAKFAST TOMORROW. REPORT GIVEN TO ELIEL ARGUELLO.
--- NOTE | 2021-08-25 05:46 | NUR ---
CATTLE DEHORNER SUMMARY NO ACUTE CHANGES THIS SHIFT. PT AAOX4 AND INDEPENDENT IN ROOM. DENIES PAIN. TOLERATING PO INTAKE W/ FULL LIQUID DIET. PT TO ATTEMPT REGULAR DIET THIS AM FOR BREAKFAST. CONTINUES TO PASS FLATUS AND HAS SMALL BM'S. PT STATES BM'S ARE BECOMING MORE FORMED AND LESS FREQUENT. VSS, WILL CONTINUE TO MONITOR.
[2021-08-25] MEDS ORDERED: TAMS.4ER PO (08:11)
--- NOTE | 2021-08-25 11:07 | NUR ---
DISCHARGE PT PROVIDED WITH WRITTEN AND VERBAL DISCHARGE INSTRUCTIONS AT 1042, PT AND FAMILY MEMBER REPORTED UNDERSTANDING. DRESSINGS PROVIDED. PT AMBULATED OUT WITH WALKER INDEPENDENTLY.
== END 2021-08-25 10:42 | disposition home or self-care (01) | DRG 330 ==
LOC: ORSCMMR 05:46 → ORD 07:30 → SURS 13:16 → ORSCMMR 13:26 → SURS 14:00
PROVIDERS: Surgery; ADMIT Surgery
PROC: 0DJD4ZZ Inspection of Lower Intestinal Tract, Percutaneous Endoscopic Approach (ICD-10-PCS; 2021-08-15)
PROC: 0DTF0ZZ Resection of Right Large Intestine, Open Approach (ICD-10-PCS; principal; 2021-08-15 07:30)
PROC: 8E0W0CZ Robotic Assisted Procedure of Trunk Region, Open Approach (ICD-10-PCS; 2021-08-15 07:30)
DX: D12.2 Benign neoplasm of ascending colon (principal); K91.89 Other postprocedural complications and disorders of digestive system; K56.7 Ileus, unspecified; E87.1 Hypo-osmolality and hyponatremia; Z28.21 Immunization not carried out because of patient refusal; R33.8 Other retention of urine; D12.0 Benign neoplasm of cecum; D12.3 Benign neoplasm of transverse colon; I10 Essential (primary) hypertension; J44.9 Chronic obstructive pulmonary disease, unspecified; M19.90 Unspecified osteoarthritis, unspecified site; R73.03 Prediabetes; G14 Postpolio syndrome; Z96.651 Presence of right artificial knee joint; Z86.718 Personal history of other venous thrombosis and embolism; Z90.49 Acquired absence of other specified parts of digestive tract; Z98.890 Other specified postprocedural states; Z87.891 Personal history of nicotine dependence; Z79.899 Other long term (current) drug therapy; Y83.8 Other surgical procedures as the cause of abnormal reaction of the patient, or of later complication, without mention of misadventure at the time of the procedure
CPT/HCPCS: 36415; 80048; 81001; 82947; 83735; 84100; 85025; 86850; 86900; 86901; 87086; 88307; 94660; 94760; 94762; 97110; 97116; 97162; A9270; C9113; J0690; J1100; J1644; J1650; J2250; J2370; J2405; J2704; J2765; J3010; J3480; J7042; J7120

== ENCOUNTER 2022-06-17 13:50 | Emergency (ER) | payer MEDICARE ==
[~2022-06-17] VITALS: Ht 175.3 cm; Wt 90.7 kg
[~2022-06-17 13:50] MED LIST changes: +TAMS.4ER PO
[2022-06-17 14:37] LABS: BASOPHILS ABSOLUTE AUTO 0.04 K/mm3 (0.00-0.23); BASOPHILS PERCENT AUTO 0 % (0-2); EOSINOPHILS ABSOLUTE AUTO 0.06 K/mm3 (0.00-0.68); EOSINOPHILS PERCENT AUTO 1 % (0-6); Hematocrit 36.8 % (37.0-53.0); Hemoglobin 13.4 g/dL (13.5-17.5); IMMATURE GRAN ABSOLUTE AUTO 0.03 K/mm3 (0.00-0.10); IMMATURE GRAN PERCENT AUTO 0 % (0-1); LYMPHOCYTES ABSOLUTE AUTO 1.66 K/mm3 (0.84-5.20); LYMPHOCYTES PERCENT AUTO 18 % (21-46); MONOCYTES ABSOLUTE AUTO 0.96 K/mm3 (0.16-1.47); MONOCYTES PERCENT AUTO 11 % (4-13); Mean Corpuscular HGB 33.7 pg (26.0-34.0); Mean Corpuscular HGB Conc 36.4 g/dL (31.5-36.5); Mean Corpuscular Volume 93 fL (80-100); Mean Platelet Volume 8.3 fL (9.1-12.4); NEUTROPHILS ABSOLUTE AUTO 6.43 K/mm3 (1.96-9.15); NEUTROPHILS PERCENT AUTO 70 % (41-73); Platelet Count 301 K/mm3 (150-400); RDW Standard Deviation 47.6 fL (35.1-46.3); Red Blood Cell Count 3.98 M/mm3 (4.30-5.90); White Blood Cell Count 9.18 K/mm3 (4.00-11.30)
[2022-06-17] MEDS ORDERED: CEPH500 PO (15:51)
== END 2022-06-17 16:22 | disposition home or self-care (01) ==
LOC: ER 13:50
PROVIDERS: Physician Assistant
DX: L02.415 Cutaneous abscess of right lower limb (principal); Z79.899 Other long term (current) drug therapy; Z87.891 Personal history of nicotine dependence
CPT/HCPCS: 36415; 73562-RT; 85025; A9270

== ENCOUNTER → 2022-07-17 | Outpatient (CLI) | payer MEDICARE ==
[~2022-07-17] MED LIST changes: +CEPH500 PO
== END ==
LOC: LAB SHORT 15:40 → LAB 15:40
DX: S81.801D Unspecified open wound, right lower leg, subsequent encounter (principal)
CPT/HCPCS: 87070; 87075; 87205

== ENCOUNTER 2022-07-23 01:08 | Day surgery (SDC) | payer MEDICARE | END 2022-07-23 22:52 | disposition home or self-care (01) | LOC: WOUND 01:08 | DX: S81.001D Unspecified open wound, right knee, subsequent encounter (principal); X58.XXXD Exposure to other specified factors, subsequent encounter; I10 Essential (primary) hypertension; I25.2 Old myocardial infarction; Z86.12 Personal history of poliomyelitis; Z87.891 Personal history of nicotine dependence | CPT/HCPCS: A9270; G0463 ==

== ENCOUNTER 2022-08-06 00:12 | Day surgery (SDC) | payer MEDICARE | END 2022-08-06 23:15 | disposition home or self-care (01) | LOC: WOUND 00:12 | DX: L89.893 Pressure ulcer of other site, stage 3 (principal); S81.801D Unspecified open wound, right lower leg, subsequent encounter; X58.XXXD Exposure to other specified factors, subsequent encounter; Z86.12 Personal history of poliomyelitis | CPT/HCPCS: G0463 ==

== ENCOUNTER 2022-08-13 00:14 | Day surgery (SDC) | payer MEDICARE | END 2022-08-13 22:42 | disposition home or self-care (01) | LOC: WOUND 00:14 | DX: L89.893 Pressure ulcer of other site, stage 3 (principal); S81.801D Unspecified open wound, right lower leg, subsequent encounter | CPT/HCPCS: G0463 ==

== ENCOUNTER 2022-08-27 01:23 | Day surgery (SDC) | payer MEDICARE | END 2022-08-27 22:59 | disposition home or self-care (01) | LOC: WOUND 01:23 | DX: L89.893 Pressure ulcer of other site, stage 3 (principal); I89.0 Lymphedema, not elsewhere classified; S81.801D Unspecified open wound, right lower leg, subsequent encounter | CPT/HCPCS: A9270 ==

== ENCOUNTER 2022-09-03 00:42 | Day surgery (SDC) | payer MEDICARE | END 2022-09-03 22:41 | disposition home or self-care (01) | LOC: WOUND 00:42 | DX: L89.893 Pressure ulcer of other site, stage 3 (principal); I89.0 Lymphedema, not elsewhere classified; S81.801D Unspecified open wound, right lower leg, subsequent encounter | CPT/HCPCS: A9270 ==

== ENCOUNTER 2022-09-10 00:10 | Day surgery (SDC) | payer MEDICARE | END 2022-09-10 23:03 | disposition home or self-care (01) | LOC: WOUND 00:10 | DX: L89.893 Pressure ulcer of other site, stage 3 (principal); S81.801D Unspecified open wound, right lower leg, subsequent encounter; X58.XXXD Exposure to other specified factors, subsequent encounter | CPT/HCPCS: A9270; G0463 ==

== ENCOUNTER 2022-09-17 08:00 | Day surgery (SDC) | payer MEDICARE ==
[2022-09-18] MEDS ORDERED: LASIX20 M2 PO (15:23)
[2022-09-18] MEDS ORDERED: FURO20 PO (15:23)
[2022-09-18] MEDS ORDERED: CEPH500 PO (15:23)
== END 2022-09-17 23:59 | disposition home or self-care (01) ==
LOC: WOUND 08:00
DX: L89.893 Pressure ulcer of other site, stage 3 (principal); S81.801D Unspecified open wound, right lower leg, subsequent encounter; X58.XXXD Exposure to other specified factors, subsequent encounter
CPT/HCPCS: G0463

== ENCOUNTER → 2022-09-26 | Outpatient (CLI) | payer MEDICARE ==
[~2022-09-26] MED LIST changes: +FURO20 PO; +LASIX20 M2 PO
[2022-09-26 15:59] LABS: Bun/Creatinine Ratio 11.3 (12.0-20.0); Calcium, Blood 8.7 mg/dL (8.5-10.1); Creatinine, Blood 0.36 mg/dL (0.60-1.20); Potassium, Blood 4.1 mmol/L (3.5-5.5)
== END | disposition home or self-care (01) ==
LOC: LAB 11:51 → LAB SHORT 11:51
PROVIDERS: Nurse Practitioner Family
DX: E87.1 Hypo-osmolality and hyponatremia (principal)
CPT/HCPCS: 80048

== ENCOUNTER 2022-09-30 08:27 | Emergency (ER) | payer MEDICARE ==
[~2022-09-30] VITALS: Ht 175.3 cm; Wt 93.0 kg
[2022-09-30 08:46] VITALS: BP 133/65
[2022-09-30] MEDS ORDERED: TRIDERM28.4 GM TOP (09:15)
== END 2022-09-30 09:21 | disposition home or self-care (01) ==
LOC: ER 08:27
DX: R21 Rash and other nonspecific skin eruption (principal); L98.9 Disorder of the skin and subcutaneous tissue, unspecified; I10 Essential (primary) hypertension; Z87.891 Personal history of nicotine dependence
CPT/HCPCS: 99282

== ENCOUNTER 2022-10-08 01:09 | Day surgery (SDC) | payer MEDICARE ==
[~2022-10-08 01:09] MED LIST changes: +TRIDERM28.4 GM TOP
== END 2022-10-08 22:58 | disposition home or self-care (01) ==
LOC: WOUND 01:09
DX: L89.893 Pressure ulcer of other site, stage 3 (principal); S81.801D Unspecified open wound, right lower leg, subsequent encounter; I89.0 Lymphedema, not elsewhere classified; X58.XXXD Exposure to other specified factors, subsequent encounter
CPT/HCPCS: G0463

== ENCOUNTER 2022-10-16 02:35 | Day surgery (SDC) | payer MEDICARE | END 2022-10-16 23:07 | disposition home or self-care (01) | LOC: WOUND 02:35 | DX: S81.801D Unspecified open wound, right lower leg, subsequent encounter (principal); X58.XXXD Exposure to other specified factors, subsequent encounter; L89.893 Pressure ulcer of other site, stage 3 | CPT/HCPCS: G0463 ==

== ENCOUNTER → 2022-10-17 | Outpatient (CLI) | payer MEDICARE ==
[2022-10-17 13:14] LABS: Bun/Creatinine Ratio 15.3 (12.0-20.0); Calcium, Blood 9.5 mg/dL (8.5-10.1); Creatinine, Blood 0.39 mg/dL (0.60-1.20); Potassium, Blood 4.1 mmol/L (3.5-5.5)
== END | disposition home or self-care (01) ==
LOC: LAB SHORT 08:56 → LAB 08:56 → LAB FUT 09-27 15:20 → EDSTATUS 09-27 15:20
PROVIDERS: Nurse Practitioner Family
DX: E87.1 Hypo-osmolality and hyponatremia (principal)
CPT/HCPCS: 80048

== ENCOUNTER 2022-10-22 03:40 | Day surgery (SDC) | payer MEDICARE | END 2022-10-22 23:18 | disposition home or self-care (01) | LOC: WOUND 03:40 | DX: S81.801D Unspecified open wound, right lower leg, subsequent encounter (principal); L89.893 Pressure ulcer of other site, stage 3; X58.XXXD Exposure to other specified factors, subsequent encounter | CPT/HCPCS: G0463 ==

== ENCOUNTER 2022-10-29 01:57 | Day surgery (SDC) | payer MEDICARE | END 2022-10-29 23:00 | disposition home or self-care (01) | LOC: WOUND 01:57 | DX: L89.893 Pressure ulcer of other site, stage 3 (principal); Z96.651 Presence of right artificial knee joint; S81.801D Unspecified open wound, right lower leg, subsequent encounter | CPT/HCPCS: A9270 ==

== ENCOUNTER 2022-11-26 00:36 | Day surgery (SDC) | payer MEDICARE | END 2022-11-26 23:04 | disposition home or self-care (01) | LOC: WOUND 00:36 | DX: L89.893 Pressure ulcer of other site, stage 3 (principal); S81.801D Unspecified open wound, right lower leg, subsequent encounter | CPT/HCPCS: A9270 ==

== ENCOUNTER 2022-12-03 00:23 | Day surgery (SDC) | payer MEDICARE | END 2022-12-03 23:02 | disposition home or self-care (01) | LOC: WOUND 00:23 | DX: L89.893 Pressure ulcer of other site, stage 3 (principal); S81.801D Unspecified open wound, right lower leg, subsequent encounter | CPT/HCPCS: G0463 ==

== ENCOUNTER 2022-12-17 02:14 | Day surgery (SDC) | payer MEDICARE | END 2022-12-17 23:01 | disposition home or self-care (01) | LOC: WOUND 02:14 | DX: L89.893 Pressure ulcer of other site, stage 3 (principal); S81.801D Unspecified open wound, right lower leg, subsequent encounter; X58.XXXD Exposure to other specified factors, subsequent encounter; I89.0 Lymphedema, not elsewhere classified | CPT/HCPCS: G0463 ==

== ENCOUNTER 2022-12-24 01:59 | Day surgery (SDC) | payer MEDICARE | END 2022-12-24 22:43 | disposition home or self-care (01) | LOC: WOUND 01:59 | DX: L89.893 Pressure ulcer of other site, stage 3 (principal); I89.0 Lymphedema, not elsewhere classified; S81.801D Unspecified open wound, right lower leg, subsequent encounter | CPT/HCPCS: G0463 ==

== ENCOUNTER 2022-12-31 02:05 | Day surgery (SDC) | payer MEDICARE | END 2022-12-31 23:00 | disposition home or self-care (01) | LOC: WOUND 02:05 | DX: L89.893 Pressure ulcer of other site, stage 3 (principal); S81.801D Unspecified open wound, right lower leg, subsequent encounter; I89.0 Lymphedema, not elsewhere classified; X58.XXXD Exposure to other specified factors, subsequent encounter | CPT/HCPCS: A9270 ==

== ENCOUNTER 2023-01-07 00:38 | Day surgery (SDC) | payer MEDICARE | END 2023-01-07 22:49 | disposition home or self-care (01) | LOC: WOUND 00:38 | DX: L89.893 Pressure ulcer of other site, stage 3 (principal); S81.801D Unspecified open wound, right lower leg, subsequent encounter | CPT/HCPCS: G0463 ==

== ENCOUNTER 2023-01-14 01:41 | Day surgery (SDC) | payer MEDICARE | END 2023-01-14 22:55 | disposition home or self-care (01) | LOC: WOUND 01:41 | DX: L89.893 Pressure ulcer of other site, stage 3 (principal); S81.801D Unspecified open wound, right lower leg, subsequent encounter; X58.XXXD Exposure to other specified factors, subsequent encounter | CPT/HCPCS: G0463 ==

== ENCOUNTER 2023-01-28 01:06 | Day surgery (SDC) | payer MEDICARE | END 2023-01-28 22:50 | disposition home or self-care (01) | LOC: WOUND 01:06 | DX: L89.893 Pressure ulcer of other site, stage 3 (principal); S81.801D Unspecified open wound, right lower leg, subsequent encounter; X58.XXXD Exposure to other specified factors, subsequent encounter; M86.9 Osteomyelitis, unspecified; I89.0 Lymphedema, not elsewhere classified | CPT/HCPCS: G0463 ==

== ENCOUNTER 2023-02-04 01:47 | Day surgery (SDC) | payer MEDICARE | END 2023-02-04 23:03 | disposition home or self-care (01) | LOC: WOUND 01:47 | DX: L89.893 Pressure ulcer of other site, stage 3 (principal); M86.9 Osteomyelitis, unspecified; S81.801D Unspecified open wound, right lower leg, subsequent encounter; X58.XXXD Exposure to other specified factors, subsequent encounter | CPT/HCPCS: G0463 ==

== ENCOUNTER 2023-02-18 00:15 | Day surgery (SDC) | payer MEDICARE | END 2023-02-18 23:00 | disposition home or self-care (01) | LOC: WOUND 00:15 | DX: L89.893 Pressure ulcer of other site, stage 3 (principal); M86.9 Osteomyelitis, unspecified; S81.801D Unspecified open wound, right lower leg, subsequent encounter | CPT/HCPCS: G0463 ==

== ENCOUNTER → 2023-02-22 | Outpatient (CLI) | payer MEDICARE ==
[2023-02-22 18:55] LABS: Bun/Creatinine Ratio 14.9 (12.0-20.0); Calcium, Blood 9.5 mg/dL (8.5-10.1); Creatinine, Blood 0.4 mg/dL (0.60-1.20); Potassium, Blood 4.2 mmol/L (3.5-5.5)
== END | disposition home or self-care (01) ==
LOC: LAB SHORT 16:26 → LAB 16:26
PROVIDERS: Nurse Practitioner Family
DX: E87.1 Hypo-osmolality and hyponatremia (principal)
CPT/HCPCS: 80048

== ENCOUNTER 2023-02-25 01:10 | Day surgery (SDC) | payer MEDICARE | END 2023-02-25 23:13 | disposition home or self-care (01) | LOC: WOUND 01:10 | DX: L89.893 Pressure ulcer of other site, stage 3 (principal); I89.0 Lymphedema, not elsewhere classified; S81.801D Unspecified open wound, right lower leg, subsequent encounter; M86.9 Osteomyelitis, unspecified | CPT/HCPCS: G0463 ==

== ENCOUNTER 2023-03-04 00:27 | Day surgery (SDC) | payer MEDICARE | END 2023-03-04 22:53 | disposition home or self-care (01) | LOC: WOUND 00:27 | DX: L89.893 Pressure ulcer of other site, stage 3 (principal); M86.9 Osteomyelitis, unspecified; I89.0 Lymphedema, not elsewhere classified | CPT/HCPCS: G0463 ==

== ENCOUNTER 2023-03-11 01:05 | Day surgery (SDC) | payer MEDICARE | END 2023-03-12 23:04 | disposition home or self-care (01) | LOC: WOUND 01:05 | DX: L89.893 Pressure ulcer of other site, stage 3 (principal); S81.801D Unspecified open wound, right lower leg, subsequent encounter; X58.XXXD Exposure to other specified factors, subsequent encounter; M86.9 Osteomyelitis, unspecified | CPT/HCPCS: G0463 ==

== ENCOUNTER 2023-03-18 02:14 | Day surgery (SDC) | payer MEDICARE | END 2023-03-18 22:52 | disposition home or self-care (01) | LOC: WOUND 02:14 | DX: L89.893 Pressure ulcer of other site, stage 3 (principal); M86.9 Osteomyelitis, unspecified; S81.801D Unspecified open wound, right lower leg, subsequent encounter; X58.XXXD Exposure to other specified factors, subsequent encounter | CPT/HCPCS: A9270 ==

== ENCOUNTER 2023-03-25 02:28 | Day surgery (SDC) | payer MEDICARE | END 2023-03-25 22:43 | disposition home or self-care (01) | LOC: WOUND 02:28 | DX: L89.893 Pressure ulcer of other site, stage 3 (principal); M86.9 Osteomyelitis, unspecified; I89.0 Lymphedema, not elsewhere classified | CPT/HCPCS: A9270 ==

== ENCOUNTER 2023-04-01 00:43 | Day surgery (SDC) | payer MEDICARE | END 2023-04-01 22:52 | disposition home or self-care (01) | LOC: WOUND 00:43 | DX: L89.893 Pressure ulcer of other site, stage 3 (principal); S81.801D Unspecified open wound, right lower leg, subsequent encounter; X58.XXXD Exposure to other specified factors, subsequent encounter; M86.9 Osteomyelitis, unspecified | CPT/HCPCS: 87070; 87075; 87205; G0463 ==

== ENCOUNTER 2023-04-08 02:48 | Day surgery (SDC) | payer MEDICARE | END 2023-04-08 23:04 | disposition home or self-care (01) | LOC: WOUND 02:48 | DX: L89.893 Pressure ulcer of other site, stage 3 (principal); I89.0 Lymphedema, not elsewhere classified; S81.801D Unspecified open wound, right lower leg, subsequent encounter; M86.9 Osteomyelitis, unspecified | CPT/HCPCS: A9270 ==

== ENCOUNTER 2023-04-15 02:59 | Day surgery (SDC) | payer MEDICARE | END 2023-04-15 23:03 | disposition home or self-care (01) | LOC: WOUND 02:59 | DX: L89.893 Pressure ulcer of other site, stage 3 (principal); S81.801D Unspecified open wound, right lower leg, subsequent encounter; M86.9 Osteomyelitis, unspecified | CPT/HCPCS: G0463 ==

== ENCOUNTER 2023-04-21 22:00 | Inpatient (IN) | payer MEDICARE ==
[2023-04-21] VITALS (8 sets, daily range): BP systolic 100–132; BP diastolic 58–76
[~2023-04-21] VITALS: Ht 172.7 cm; Wt 93.1 kg
[2023-04-21 22:18] LABS: BASOPHILS ABSOLUTE AUTO 0.04 K/mm3 (0.00-0.23); BASOPHILS PERCENT AUTO 0 % (0-2); EOSINOPHILS ABSOLUTE AUTO 0.08 K/mm3 (0.00-0.68); EOSINOPHILS PERCENT AUTO 1 % (0-6); Hematocrit 37.3 % (37.0-53.0); Hemoglobin 12.9 g/dL (13.5-17.5); IMMATURE GRAN ABSOLUTE AUTO 0.11 K/mm3 (0.00-0.10); IMMATURE GRAN PERCENT AUTO 1 % (0-1); LYMPHOCYTES ABSOLUTE AUTO 3.41 K/mm3 (0.84-5.20); LYMPHOCYTES PERCENT AUTO 32 % (21-46); MONOCYTES ABSOLUTE AUTO 1.06 K/mm3 (0.16-1.47); MONOCYTES PERCENT AUTO 10 % (4-13); Mean Corpuscular HGB 33.8 pg (26.0-34.0); Mean Corpuscular HGB Conc 34.6 g/dL (31.5-36.5); Mean Corpuscular Volume 98 fL (80-100); Mean Platelet Volume 8.4 fL (9.1-12.4); NEUTROPHILS ABSOLUTE AUTO 5.94 K/mm3 (1.96-9.15); NEUTROPHILS PERCENT AUTO 56 % (41-73); Platelet Count 233 K/mm3 (150-400); RDW Coefficient Variation 13.9 % (11.7-14.2); RDW Standard Deviation 49.9 fL (35.1-46.3); Red Blood Cell Count 3.82 M/mm3 (4.30-5.90); White Blood Cell Count 10.64 K/mm3 (4.00-11.30)
[2023-04-21 22:25] LABS: Calcium, Ionized (POC) 1.09 mmol/L (1.10-1.46); Chloride (POC) 93 mmol/L (98-108); Creatinine (POC) 0.9 mg/dL (0.8-1.3); Glucose (ISTAT POC) 159 mg/dL (70-99); Hemoglobin (POC) 13.3 g/dL (13.5-17.5); Potassium (POC) 4.5 mmol/L (3.5-5.5); Sodium (POC) 124 mmol/L (135-148); Total CO2 (POC) 18 mmol/L (21-32)
[2023-04-21 22:41] LABS: Albumin, Blood 3.1 g/dL (3.4-5.0); Albumin/Globulin Ratio 0.8 (0.8-1.8); Bilirubin, Total 0.4 mg/dL (0.1-1.0); Bun/Creatinine Ratio 15.9 (12.0-20.0); Calcium, Blood 7.8 mg/dL (8.5-10.1); Creatinine, Blood 0.69 mg/dL (0.60-1.20); Globulin, Blood 4.1 g/dL (2.2-4.0); Potassium, Blood 4.5 mmol/L (3.5-5.5); Total Protein, Blood 7.2 g/dL (6.4-8.2)
[2023-04-21 23:44] LABS: Magnesium, Blood 1.9 mg/dL (1.6-2.4)
[2023-04-22] VITALS (22 sets, daily range): BP systolic 108–148; BP diastolic 54–102
[2023-04-22 05:58] LABS: BASOPHILS ABSOLUTE AUTO 0.04 K/mm3 (0.00-0.23); BASOPHILS PERCENT AUTO 1 % (0-2); EOSINOPHILS ABSOLUTE AUTO 0.03 K/mm3 (0.00-0.68); EOSINOPHILS PERCENT AUTO 0 % (0-6); Hematocrit 35.3 % (37.0-53.0); Hemoglobin 12.6 g/dL (13.5-17.5); IMMATURE GRAN ABSOLUTE AUTO 0.03 K/mm3 (0.00-0.10); IMMATURE GRAN PERCENT AUTO 0 % (0-1); LYMPHOCYTES ABSOLUTE AUTO 1.68 K/mm3 (0.84-5.20); LYMPHOCYTES PERCENT AUTO 24 % (21-46); MONOCYTES PERCENT AUTO 11 % (4-13); Mean Corpuscular HGB 34.1 pg (26.0-34.0); Mean Corpuscular HGB Conc 35.7 g/dL (31.5-36.5); Mean Corpuscular Volume 95 fL (80-100); Mean Platelet Volume 8.7 fL (9.1-12.4); NEUTROPHILS ABSOLUTE AUTO 4.41 K/mm3 (1.96-9.15); NEUTROPHILS PERCENT AUTO 63 % (41-73); Platelet Count 253 K/mm3 (150-400); RDW Coefficient Variation 13.8 % (11.7-14.2); RDW Standard Deviation 48.6 fL (35.1-46.3); White Blood Cell Count 6.99 K/mm3 (4.00-11.30)
[2023-04-22 06:22] LABS: Albumin, Blood 2.9 g/dL (3.4-5.0); Albumin/Globulin Ratio 0.7 (0.8-1.8); Bilirubin, Total 0.4 mg/dL (0.1-1.0); Bun/Creatinine Ratio 19.5 (12.0-20.0); Calcium, Blood 8.1 mg/dL (8.5-10.1); Creatinine, Blood 0.41 mg/dL (0.60-1.20); Globulin, Blood 3.9 g/dL (2.2-4.0); Potassium, Blood 3.8 mmol/L (3.5-5.5); Total Protein, Blood 6.8 g/dL (6.4-8.2)
--- NOTE | 2023-04-22 07:15 | NUR ---
ASSUMPTION OF CARE: ASSUMED CARE OF PATIENT WITH ELSA OVERTON. PATIENT RESTING CALMLY IN BED. TRANSVENOUS PACER SUTURED INTO PLACE. SETTINGS ARE mA 10, mV 2 AND RATE OF 60 WITH 100% CAPTURE. 1/[id number] INFUSING AT 75 MLS/HR. MAGNESIUM REPLACEMENT ALMOST COMPLETED. PATIENT ANSWERING QUESTIONS APPROPRIATELY. CALL LIGHT WITHIN REACH.
[2023-04-22] MEDS ORDERED: AMLO5 PO (10:30)
--- NOTE | 2023-04-22 18:34 | NUR ---
SHIFT SUMMARY: NEURO: PATIENT ALERT AND ORIENTED. ABLE TO PROVIDE HISTORY AND REMEMBER THE PLAN OF CARE. PATIENT FOLLOWING DIRECTIONS. HOWEVER, PATIENT DEMONSTRATES SOME DIFFICULTY WITH ARTICULATING THOUGHTS CLEARLY. PATIENT DENIES NUMBNESS/TINGLING. MOVES EXTREMITIES INDEPENDENLTY. PATIENT HAS LIMITED RANGE OF MOTION ON RIGHT LEG AT BASELINE. CARDIAC: PATIENT 100% PACED THROUGHOUT THE DAY. TRANSVENEOUS PACING: R: 60, mA: 10, mV 2. PATIENT DENIED CHEST PAIN OR DISCOMFORT THROUGHOUT THE DAY. PATIENT HAS SOME GENERALIZED DEPENDENT EDEMA AND SOME EDEMA IN THE LOWER RIGHT LEG. PATIENT REPORTS THE BLE EDEMA OCCURS WHEN HE IS NOT UP MOVING DURING THE DAY. RESPIRATORY: PATIENT STABLE ON RA DURING THE DAY. SPO2 IN MID 90S. PATIENT DENIED SHORTNESS OF BREATH OR DIFFICULTY BREATHING. HOME CPAP AT BEDSIDE. GI/: PATIENT VOIDING WITHOUT DIFFICULTY. PATIENT HAD TWO SMALL BOWEL MOVEMENTS ON THE BED SCOTT TODAY. PATIENT DENIED FEELINGS OF CONSTIPATION. PATIENT TOLERATING PO INTAKE. INTEGUMENTARY: PATIENT DRESSING CHANGED TODAY BY BEDSIDE RN. CHANGED DRESSING PER WOUND CARE DRESSING INSTRUCTIONS PROVIDED TO THE PATIENT ON 04/15. WOUND CARE REPORTED NO INPATIENT THROW OUT CLERK AVAILABLE TODAY. PSYCHSOCIAL: PATIENT CALM AND COOPERATIVE THROUGHOUT THE SHIFT. PATIENT VISITED BY HIS EX- VIVIAN ("ESTHER"). SHE IS SUPPORTIVE OF THE PATIENT AND HELPS HIM WITH HIS MEDICAL CARE.
--- NOTE | 2023-04-22 19:59 | NUR ---
SHIFT ASSESSMENT: ASSUMED CARE; PT A&OX4 DENIES ANY PAIN OR SOB. JORGE AT 4MM BILAT. LS CLEAR AND SLIGHTLY DIMINISHED INTHE BASES WITH BIOX 99% ON HOME CPAP. HEART SOUNDS S1 AND S2 AUSCULTATED WITH MONIOTR SHOWING 100% VPACE; TRANSVENOUS PACER IN RIJ AT 40CM INSERTED AND SETTING RATE 60, OUTPUT 10 MA, AND SENSE 2.0 MV. SKIN PINK, WARM AND DRY. BILAT REDDENED LOWER LEGS R>L. BILAT LE EDEMA WITH L 1+ PITTING AND R 3+ PITTING. WOUND TO POSTERIOR R KNEE WITH DRESSING CLEAN DRY AND INTACT THAT WAS CHANGED ON DAYS. PPP BILAT AND STRONG. ABD R/S WITH BT X4. VOIDS PER URINAL.
--- NOTE | 2023-04-22 20:10 | NUR ---
UPDATE: DR. DOMINIQUE PUT IN AN ORDER FOR LOVENOX, CALL PLACED TO DR. HSIEH WHO ADVISED TO HOLD LOVENOX INCASE PT NEEDS TO EMERGENTLY HAVE A PERMANENT PACER PLACED.
[2023-04-23] VITALS (25 sets, daily range): BP systolic 115–140; BP diastolic 58–96
[2023-04-23 03:33] LABS: BASOPHILS ABSOLUTE AUTO 0.03 K/mm3 (0.00-0.23); BASOPHILS PERCENT AUTO 0 % (0-2); EOSINOPHILS PERCENT AUTO 1 % (0-6); Hematocrit 35.9 % (37.0-53.0); Hemoglobin 12.2 g/dL (13.5-17.5); IMMATURE GRAN ABSOLUTE AUTO 0.03 K/mm3 (0.00-0.10); IMMATURE GRAN PERCENT AUTO 0 % (0-1); LYMPHOCYTES PERCENT AUTO 17 % (21-46); MONOCYTES ABSOLUTE AUTO 0.78 K/mm3 (0.16-1.47); MONOCYTES PERCENT AUTO 11 % (4-13); Mean Corpuscular HGB 33.6 pg (26.0-34.0); Mean Corpuscular Volume 99 fL (80-100); Mean Platelet Volume 8.8 fL (9.1-12.4); NEUTROPHILS ABSOLUTE AUTO 4.89 K/mm3 (1.96-9.15); NEUTROPHILS PERCENT AUTO 70 % (41-73); Platelet Count 228 K/mm3 (150-400); RDW Coefficient Variation 14.3 % (11.7-14.2); RDW Standard Deviation 52.3 fL (35.1-46.3); Red Blood Cell Count 3.63 M/mm3 (4.30-5.90); White Blood Cell Count 7.03 K/mm3 (4.00-11.30)
[2023-04-23 03:54] LABS: Bun/Creatinine Ratio 30.6 (12.0-20.0); Calcium, Blood 8.6 mg/dL (8.5-10.1); Creatinine, Blood 0.46 mg/dL (0.60-1.20); Percent Saturation 24.5 % (20.0-50.0); Potassium, Blood 3.9 mmol/L (3.5-5.5)
--- NOTE | 2023-04-23 05:59 | NUR ---
SHIFT SUMMARY: PT HAD UNEVENTFUL NIGHT. TRANSVENOUS PACER TO RIJ 40CM IN; SETTING HR 60, OUTPUT 10 MA, SENSITIVITY 2.0 MV. PT WILL CALL WHEN HE NEEDS TO USE THE URINAL SO THAT I CAN REMOVE HIS CPAP FOR HIM HE DOESN'T WANT TO PULL OUT THE TRANSVENOUS PACER. PT HAD A MORE RESTFUL NIGHT. DR. HSIEH CAME THROUGH THIS AM TO SEE PT; MADE SURE LOVENOX WAS NOT GIVEN AND REQUESTS THAT LOVENOX NOT BE GIVEN PRIOR TO HIS PERMANENT PACER IS PLACED.
--- NOTE | 2023-04-23 08:30 | NUR ---
SHIFT ASSESSMENT ASSUMED CARE OF PT @ 0700, BEDSIDE REPORT RECEIVED FROM GOMEZ ARGUELLO. PT A&OX4, FOLLOWING COMMANDS, BELLAMY. ON BEDREST, AWAITING PERMANENT PACEMAKER PLACEMENT TOMORROW PENDING BLOOD CULTURES. 100% PACED, TRANSVENOUS PACER IN RIJ@ 40CM, ASSESSED WITH GOMEZ, SETTINGS-RATE 60, OUTPUT 10MA, 2MV SENSE. DENIES CP/ SOB. PT TOLERATING PO INTAKE WELL, WILL BE NPO AFTER MIDNIGHT TONIGHT. USING URINAL WHILE IN BED AND BEDPAN, ONE LOOSE BM TODAY. CALL LIGHT IN REACH.
[2023-04-23 15:47] LABS: Stool Occult Blood Guaiac 1 Neg (Neg)
--- NOTE | 2023-04-23 17:35 | NUR ---
SHIFT SUMMARY PT REMAINS A&OX4 AND ON BEDREST. DENIES CP/ SOB T/O DAY. REMAINS IN 100% PACED RYTHM @ 60. BP WNL. TOLERATING PO INTAKE, NO N/V. 2 LOOSE BM'S TODAY, STOOL SPECIMEN SENT TO LAB. NO OTHER ACUTE CHANGES.
--- NOTE | 2023-04-23 19:30 | NUR ---
ASSUMPTION OF CARE PT RESTING IN BED, ALERT AND ORIENTED. PT ABLE TO ASNWER QUESTIONS, FOLLOW COMMANDS, AND MAKE NEEDS KNOWN. HR 60 PACED, TRANSVERNOUS PACER IN PLACE, PACED RATE OF 60BPM, OUTPUT 10, SENSE 2. PT DENIES CP OR SOB, MAP >65. PT ON RA, OXYGEN SATURATION >95%. PT USES URINAL TO VOID. PIV TO RIGHT WRIST AND LEFT WRIST SL. BED IN LOWEST POSITION, CALL LIGHT WITHIN REACH. CARE CONTINUES.
[2023-04-24] VITALS (14 sets, daily range): BP systolic 108–134; BP diastolic 52–67
[2023-04-24 03:40] LABS: BASOPHILS ABSOLUTE AUTO 0.04 K/mm3 (0.00-0.23); BASOPHILS PERCENT AUTO 1 % (0-2); EOSINOPHILS ABSOLUTE AUTO 0.11 K/mm3 (0.00-0.68); EOSINOPHILS PERCENT AUTO 1 % (0-6); Hematocrit 37.6 % (37.0-53.0); Hemoglobin 12.8 g/dL (13.5-17.5); IMMATURE GRAN ABSOLUTE AUTO 0.02 K/mm3 (0.00-0.10); IMMATURE GRAN PERCENT AUTO 0 % (0-1); LYMPHOCYTES ABSOLUTE AUTO 1.57 K/mm3 (0.84-5.20); LYMPHOCYTES PERCENT AUTO 18 % (21-46); MONOCYTES ABSOLUTE AUTO 1.07 K/mm3 (0.16-1.47); MONOCYTES PERCENT AUTO 12 % (4-13); Mean Corpuscular HGB 33.8 pg (26.0-34.0); Mean Corpuscular Volume 99 fL (80-100); Mean Platelet Volume 8.8 fL (9.1-12.4); NEUTROPHILS ABSOLUTE AUTO 6.06 K/mm3 (1.96-9.15); NEUTROPHILS PERCENT AUTO 68 % (41-73); Platelet Count 201 K/mm3 (150-400); RDW Coefficient Variation 14.5 % (11.7-14.2); RDW Standard Deviation 53.1 fL (35.1-46.3); Red Blood Cell Count 3.79 M/mm3 (4.30-5.90); White Blood Cell Count 8.87 K/mm3 (4.00-11.30)
[2023-04-24 04:08] LABS: Bun/Creatinine Ratio 36.7 (12.0-20.0); Calcium, Blood 9.1 mg/dL (8.5-10.1); Creatinine, Blood 0.44 mg/dL (0.60-1.20); Potassium, Blood 4.3 mmol/L (3.5-5.5)
--- NOTE | 2023-04-24 05:58 | NUR ---
SHIFT SUMMARY PT CONINTUES TO REST IN BED. ALERT AND ORIENTED X4. PT ABLE TO ANSWER QUESTIONS, FOLLOW COMMANDS, AND MAKE NEEDS KNOWN. TRANVENOUS PACER IN PLACE, PACING 60BPM, OUTPUT 10, SENSE 2. PT DENIES CP OR SOB, MAP >65. PT ON RA, AND CPAP WHILE ASLEEP, OXYGEN SATURATION >95%. PIV TO LEFT AND RIGHT WRIST SL. PT USES URINAL TO VOID. BED IN LOWEST POSITION, CALL LIGHT WITHIN REACH. CARE CONTINUES.
--- NOTE | 2023-04-24 09:14 | NUR ---
Assumed care at 0700, bedside report received from nightshift RN. Pt resting in bed, on RA, alert and oriented. Denies chest pain/pressure/SOB. Transvenous pacer in place, R/IJ access, set to 60 BPM, output 10, sens 2. PIV in place, left and right wrist, wnl. Pt taken to geophysical laboratory supervisor at approximately 0820.
--- NOTE | 2023-04-24 13:56 | NUR ---
WOUND CARE PT IS MUTUAL PT OF [place] AND KNOWN TO THIS RN. CHRONIC 1.2x0.3x0.1 WOUND TO R POSTERIOR KNEE. HYPERGRANULATION TISSUE NOTED WOULD RECOMMEND CLEANSING WITH NS THEN APPLYING POLYMEM CLOTH DOT. CHANGE 3X WEEK
--- NOTE | 2023-04-24 18:41 | NUR ---
Shift summary. Pt resting in bed, on RA, alert and oriented. Transvenous pacer in place, R/IJ, settings: 60 BPM, output 10, sens 2. PIV in place, R&L wrists, wnl. Plan is for pt to transfer in am for pacer placement, see chart notes. Pt up to commode and chair during shift, able to ambulate with walker and standby assist. VS stable this shift, see chart for further details. Will report off to nightshift RN.
[2023-04-25] VITALS (9 sets, daily range): BP systolic 79–157; BP diastolic 56–87
--- NOTE | 2023-04-25 06:20 | NUR ---
SHIFT SUMMERY PT IS ALERT AND ORIENTED X4, VERY PLEASANT. HE IS WAITING TRANSFER TO HIGHER LEVEL OF CARE FOR PERMANENT PACEMAKER PLACEMENT. TEMP TVP PACING AT THIS TIME. PT HAS HAD NO ACUTE DISTRESS OVERNIGHT. BP HAVE BEEN WNL. SEE ORDERS FOR TVP SETTING.
--- NOTE | 2023-04-25 09:46 | NUR ---
Pt transferred at 0900. Report given to RN at accepting hospital and transport team. All personal belongings sent with patient. Transvenous pacer in place, battery showing full for transport, settings: 60BPM, output 10, sens 2. VS stable at time of transport. Pt wheeled out of unit on EMS gurney.
== END 2023-04-25 09:00 | disposition short-term general hospital (02) | DRG 309 ==
LOC: ER 22:00 → ICUE 22:01 → ER 23:18 → ICUE 23:30
PROVIDERS: Emergency Medicine; Internal Medicine; ADMIT Internal Medicine
PROC: 5A1223Z Performance of Cardiac Pacing, Continuous (ICD-10-PCS; principal; 2023-04-21)
PROC: 02HV33Z Insertion of Infusion Device into Superior Vena Cava, Percutaneous Approach (ICD-10-PCS; 2023-04-21)
DX: I44.2 Atrioventricular block, complete (principal); I42.9 Cardiomyopathy, unspecified; T84.53XA Infection and inflammatory reaction due to internal right knee prosthesis, initial encounter; D50.9 Iron deficiency anemia, unspecified; I11.9 Hypertensive heart disease without heart failure; I89.0 Lymphedema, not elsewhere classified; G47.33 Obstructive sleep apnea (adult) (pediatric); F10.10 Alcohol abuse, uncomplicated; J44.9 Chronic obstructive pulmonary disease, unspecified; Z87.891 Personal history of nicotine dependence; Z53.09 Procedure and treatment not carried out because of other contraindication; Z86.12 Personal history of poliomyelitis; I25.2 Old myocardial infarction
CPT/HCPCS: 36415; 36556; 71045; 80047; 80048; 80053; 82272; 82728; 83540; 83550; 83735; 83880; 84484; 85014; 85025; 93005; 93010; 94660; 94762; 96361; 96374; 96376; 99285-25; A9270; C8929; J0461; J0690; J2250; J3010; J3475; J7030; J7040; J7050; Q9957

== ENCOUNTER 2023-04-29 04:26 | Day surgery (SDC) | payer MEDICARE | END 2023-04-29 23:13 | disposition home or self-care (01) | LOC: WOUND 04:26 | DX: L89.893 Pressure ulcer of other site, stage 3 (principal); S81.801D Unspecified open wound, right lower leg, subsequent encounter; M86.9 Osteomyelitis, unspecified | CPT/HCPCS: G0463 ==

== ENCOUNTER 2023-05-06 01:58 | Day surgery (SDC) | payer MEDICARE | END 2023-05-06 22:56 | disposition home or self-care (01) | LOC: WOUND 01:58 | DX: I89.0 Lymphedema, not elsewhere classified (principal); L89.893 Pressure ulcer of other site, stage 3; S81.801D Unspecified open wound, right lower leg, subsequent encounter; M86.9 Osteomyelitis, unspecified | CPT/HCPCS: A9270 ==

== ENCOUNTER 2023-05-22 03:28 | Day surgery (SDC) | payer MEDICARE | END 2023-05-22 23:05 | disposition home or self-care (01) | LOC: WOUND 03:28 | DX: L89.893 Pressure ulcer of other site, stage 3 (principal); S81.801D Unspecified open wound, right lower leg, subsequent encounter; X58.XXXD Exposure to other specified factors, subsequent encounter; M86.9 Osteomyelitis, unspecified | CPT/HCPCS: A9270 ==

== ENCOUNTER 2023-05-29 01:43 | Day surgery (SDC) | payer MEDICARE | END 2023-05-29 23:25 | disposition home or self-care (01) | LOC: WOUND 01:43 | DX: L89.893 Pressure ulcer of other site, stage 3 (principal); M86.9 Osteomyelitis, unspecified; S81.801D Unspecified open wound, right lower leg, subsequent encounter | CPT/HCPCS: A9270 ==

== ENCOUNTER 2023-06-05 02:38 | Day surgery (SDC) | payer MEDICARE | END 2023-06-05 23:26 | disposition home or self-care (01) | LOC: WOUND 02:38 | DX: I89.0 Lymphedema, not elsewhere classified (principal); L89.893 Pressure ulcer of other site, stage 3; S81.801D Unspecified open wound, right lower leg, subsequent encounter; M86.9 Osteomyelitis, unspecified | CPT/HCPCS: G0463 ==

== ENCOUNTER 2023-06-12 02:48 | Day surgery (SDC) | payer MEDICARE | END 2023-06-12 23:07 | disposition home or self-care (01) | LOC: WOUND 02:48 | DX: I89.0 Lymphedema, not elsewhere classified (principal); L89.893 Pressure ulcer of other site, stage 3; S81.801D Unspecified open wound, right lower leg, subsequent encounter; M86.9 Osteomyelitis, unspecified | CPT/HCPCS: G0463 ==

== ENCOUNTER 2023-06-19 07:57 | Day surgery (SDC) | payer MEDICARE | END 2023-06-19 23:22 | disposition home or self-care (01) | LOC: WOUND 07:57 | DX: M86.9 Osteomyelitis, unspecified (principal); I89.0 Lymphedema, not elsewhere classified; Z96.651 Presence of right artificial knee joint; L89.893 Pressure ulcer of other site, stage 3; S81.801D Unspecified open wound, right lower leg, subsequent encounter | CPT/HCPCS: G0463 ==

== ENCOUNTER 2023-06-26 01:20 | Day surgery (SDC) | payer MEDICARE | END 2023-06-26 23:38 | disposition home or self-care (01) | LOC: WOUND 01:20 | DX: I89.0 Lymphedema, not elsewhere classified (principal); M86.9 Osteomyelitis, unspecified; L89.893 Pressure ulcer of other site, stage 3; S81.801D Unspecified open wound, right lower leg, subsequent encounter; X58.XXXD Exposure to other specified factors, subsequent encounter | CPT/HCPCS: G0463 ==

== ENCOUNTER 2023-07-03 00:17 | Day surgery (SDC) | payer MEDICARE | END 2023-07-03 22:45 | disposition home or self-care (01) | LOC: WOUND 00:17 | DX: I89.0 Lymphedema, not elsewhere classified (principal); L89.893 Pressure ulcer of other site, stage 3; S81.801D Unspecified open wound, right lower leg, subsequent encounter; M86.9 Osteomyelitis, unspecified; X58.XXXD Exposure to other specified factors, subsequent encounter | CPT/HCPCS: G0463 ==

== ENCOUNTER 2023-07-10 05:22 | Day surgery (SDC) | payer MEDICARE ==
[2023-07-10] MEDS ORDERED: Silver Nitr/Potassium Nitrate 1 EA APPL ONE (08:11)
== END 2023-07-10 23:12 | disposition home or self-care (01) ==
LOC: WOUND 05:22
DX: I89.0 Lymphedema, not elsewhere classified (principal); L89.893 Pressure ulcer of other site, stage 3; M86.9 Osteomyelitis, unspecified; S81.801D Unspecified open wound, right lower leg, subsequent encounter
CPT/HCPCS: A9270

== ENCOUNTER 2023-07-17 01:39 | Day surgery (SDC) | payer MEDICARE ==
[2023-07-17] MEDS ORDERED: Silver Nitr/Potassium Nitrate 1 EA APPL ONE (07:54)
== END 2023-07-17 22:57 | disposition home or self-care (01) ==
LOC: WOUND 01:39
DX: I89.0 Lymphedema, not elsewhere classified (principal); L89.893 Pressure ulcer of other site, stage 3; M86.9 Osteomyelitis, unspecified; S81.801D Unspecified open wound, right lower leg, subsequent encounter; X58.XXXD Exposure to other specified factors, subsequent encounter
CPT/HCPCS: A6196; A9270

== ENCOUNTER 2023-08-28 01:49 | Day surgery (SDC) | payer MEDICARE | END 2023-08-28 23:34 | disposition home or self-care (01) | LOC: WOUND 01:49 | DX: L89.893 Pressure ulcer of other site, stage 3 (principal); S81.801D Unspecified open wound, right lower leg, subsequent encounter; M86.9 Osteomyelitis, unspecified; Z86.12 Personal history of poliomyelitis; Z96.651 Presence of right artificial knee joint | CPT/HCPCS: G0463 ==

== ENCOUNTER 2023-09-11 03:31 | Day surgery (SDC) | payer MEDICARE | END 2023-09-11 23:01 | disposition home or self-care (01) | LOC: WOUND 03:31 | DX: L89.893 Pressure ulcer of other site, stage 3 (principal); S81.801D Unspecified open wound, right lower leg, subsequent encounter; M86.9 Osteomyelitis, unspecified | CPT/HCPCS: G0463 ==

== ENCOUNTER 2023-09-18 03:17 | Day surgery (SDC) | payer MEDICARE ==
[2023-09-18] MEDS ORDERED: Silver Nitr/Potassium Nitrate 1 EA APPL ONE (08:04)
== END 2023-09-18 22:46 | disposition home or self-care (01) ==
LOC: WOUND 03:17
DX: L89.893 Pressure ulcer of other site, stage 3 (principal); I89.0 Lymphedema, not elsewhere classified; S81.801D Unspecified open wound, right lower leg, subsequent encounter; X58.XXXD Exposure to other specified factors, subsequent encounter; M86.9 Osteomyelitis, unspecified
CPT/HCPCS: A9270

== ENCOUNTER 2023-09-25 04:39 | Day surgery (SDC) | payer MEDICARE | END 2023-09-25 23:16 | disposition home or self-care (01) | LOC: WOUND 04:39 | DX: I89.0 Lymphedema, not elsewhere classified (principal); S81.801D Unspecified open wound, right lower leg, subsequent encounter; M86.9 Osteomyelitis, unspecified; L89.893 Pressure ulcer of other site, stage 3 | CPT/HCPCS: A6196; G0463 ==

== ENCOUNTER 2023-11-09 11:04 | Emergency (ER) | payer MEDICARE ==
[~2023-11-09] VITALS: Ht 172.7 cm; Wt 99.8 kg
[2023-11-09 12:37] LABS: BASOPHILS ABSOLUTE AUTO 0.04 K/mm3 (0.00-0.23); BASOPHILS PERCENT AUTO 1 % (0-2); EOSINOPHILS ABSOLUTE AUTO 0.04 K/mm3 (0.00-0.68); EOSINOPHILS PERCENT AUTO 1 % (0-6); Hematocrit 40.9 % (37.0-53.0); Hemoglobin 14.5 g/dL (13.5-17.5); IMMATURE GRAN ABSOLUTE AUTO 0.04 K/mm3 (0.00-0.10); IMMATURE GRAN PERCENT AUTO 1 % (0-1); LYMPHOCYTES ABSOLUTE AUTO 1.52 K/mm3 (0.84-5.20); LYMPHOCYTES PERCENT AUTO 24 % (21-46); MONOCYTES ABSOLUTE AUTO 0.61 K/mm3 (0.16-1.47); MONOCYTES PERCENT AUTO 10 % (4-13); Mean Corpuscular HGB 34.9 pg (26.0-34.0); Mean Corpuscular HGB Conc 35.5 g/dL (31.5-36.5); Mean Corpuscular Volume 99 fL (80-100); Mean Platelet Volume 8.5 fL (9.1-12.4); NEUTROPHILS ABSOLUTE AUTO 3.99 K/mm3 (1.96-9.15); NEUTROPHILS PERCENT AUTO 64 % (41-73); Platelet Count 211 K/mm3 (150-400); RDW Coefficient Variation 13.7 % (11.7-14.2); RDW Standard Deviation 49.6 fL (35.1-46.3); Red Blood Cell Count 4.15 M/mm3 (4.30-5.90); White Blood Cell Count 6.24 K/mm3 (4.00-11.30)
[2023-11-09 13:00] LABS: Albumin, Blood 3.5 g/dL (3.4-5.0); Albumin/Globulin Ratio 0.8 (0.8-1.8); Bilirubin, Total 0.5 mg/dL (0.1-1.0); Calcium, Blood 8.6 mg/dL (8.5-10.1); Creatinine, Blood 0.37 mg/dL (0.60-1.20); Globulin, Blood 4.5 g/dL (2.2-4.0); Potassium, Blood 3.9 mmol/L (3.5-5.5)
[2023-11-09 16:30] VITALS: BP 141/86
== END 2023-11-09 16:47 | disposition home or self-care (01) ==
LOC: ER 11:04
PROVIDERS: Physician Assistant
DX: S49.91XA Unspecified injury of right shoulder and upper arm, initial encounter (principal); R20.0 Anesthesia of skin; R53.1 Weakness; E87.1 Hypo-osmolality and hyponatremia; R73.9 Hyperglycemia, unspecified; W18.30XA Fall on same level, unspecified, initial encounter; I10 Essential (primary) hypertension; Z79.899 Other long term (current) drug therapy
CPT/HCPCS: 70450; 71046; 73030; 80053; 85025; 93005; 93010; 99285-25

== ENCOUNTER 2023-11-13 02:58 | Day surgery (SDC) | payer MEDICARE | END 2023-11-13 22:47 | disposition home or self-care (01) | LOC: WOUND 02:58 | DX: L89.893 Pressure ulcer of other site, stage 3 (principal); S81.801D Unspecified open wound, right lower leg, subsequent encounter; X58.XXXD Exposure to other specified factors, subsequent encounter; M86.9 Osteomyelitis, unspecified; I89.0 Lymphedema, not elsewhere classified | CPT/HCPCS: A6196; G0463 ==

== ENCOUNTER 2023-11-20 03:18 | Day surgery (SDC) | payer MEDICARE | END 2023-11-20 23:12 | disposition home or self-care (01) | LOC: WOUND | DX: L89.893 Pressure ulcer of other site, stage 3 (principal); S81.001D Unspecified open wound, right knee, subsequent encounter; X58.XXXD Exposure to other specified factors, subsequent encounter; M86.9 Osteomyelitis, unspecified | CPT/HCPCS: G0463 ==

== ENCOUNTER 2023-11-27 02:17 | Day surgery (SDC) | payer MEDICARE | END 2023-11-27 23:01 | disposition home or self-care (01) | LOC: WOUND 02:17 | DX: L89.893 Pressure ulcer of other site, stage 3 (principal); S81.801D Unspecified open wound, right lower leg, subsequent encounter; M86.9 Osteomyelitis, unspecified | CPT/HCPCS: G0463 ==

== ENCOUNTER 2023-12-04 03:20 | Day surgery (SDC) | payer MEDICARE | END 2023-12-05 22:46 | disposition home or self-care (01) | LOC: WOUND 03:20 | DX: I89.0 Lymphedema, not elsewhere classified (principal); L89.893 Pressure ulcer of other site, stage 3; S81.801D Unspecified open wound, right lower leg, subsequent encounter; M86.9 Osteomyelitis, unspecified | CPT/HCPCS: G0463 ==

== ENCOUNTER 2024-01-13 00:52 | Day surgery (SDC) | payer MEDICARE | END 2024-01-14 22:51 | disposition home or self-care (01) | LOC: WOUND 00:52 | DX: L89.893 Pressure ulcer of other site, stage 3 (principal); S81.801D Unspecified open wound, right lower leg, subsequent encounter; M86.9 Osteomyelitis, unspecified; X58.XXXD Exposure to other specified factors, subsequent encounter | CPT/HCPCS: G0463 ==